=== PATIENT | female | born 1990 | race American Indian/Alaskan Native ===

== ENCOUNTER 2016-10-09 18:24 | Emergency (ER) | payer MEDICAID ==
[2016-10-09] MEDS ORDERED: Sodium Chloride 0.9% 1,000 ML IV STA (18:29)
[2016-10-09 18:33] VITALS: BMI 19.3
--- NOTE | 2016-10-09 18:35 | ED PDOC ---
Arrival/HPI - General Chief Complaint: Seizure Time Seen by Provider: 10/09/16 18:25 Historian: Patient - History of Present Illness Narrative History of Present Illness (Text): 10/09/16 18:31 A 25 year old female whose past medical history includes, seizures and not on antiepileptic medication, TBI, presents to the Emergency department after a seizure episode at her house. The patient states that she had an episode in May and had a CT- Scan done, but never followed up with a neurologist. The patient states that she feels weak. She denies headache, dizziness, cough, shortness of breath, chest pain, abdominal pain, nausea, vomiting, diarrhea, urinary incontinence, tongue biting, or any other complaints. 10/09/16 21:31 Time/Duration: Prior to Arrival Symptom Course: Unchanged Activities at Onset: Rest, Light Context: Home Past Medical History - Provider Review Nursing Documentation Reviewed: Yes - Cardiac Hx Cardiac Disorders: No - Pulmonary Hx Respiratory Disorders: No - Neurological Hx Neurological Disorder: Yes Hx Seizures: Yes - HEENT Hx HEENT Disorder: No - Renal Hx Renal Disorder: No - Endocrine/Metabolic Hx Endocrine Disorders: No - Hematological/Oncological Hx Blood Disorders: No - Integumentary Hx Dermatological Disorder: No - Musculoskeletal/Rheumatological Hx Musculoskeletal Disorders: No - Gastrointestinal Hx Gastrointestinal Disorders: No - Genitourinary/Gynecological Hx Genitourinary Disorders: No - Psychiatric Hx Psychophysiologic Disorder: No Hx Substance Use: No Family/Social History - Physician Review Nursing Documentation Reviewed: Yes Family/Social History: No Known Family HX Smoking Status: Heavy Smoker > 10 Cigarettes Daily Hx Alcohol Use: Yes Frequency of alcohol use: Socially Hx Substance Use: No Allergies/Home Meds Allergies/Adverse Reactions: Allergies No Known Allergies Allergy (Verified 10/09/16 18:26) Home Medications: Home Meds Medication Instructions Recorded Confirmed No Known Home Med 10/09/16 10/09/16 Review of Systems - Physician Review All systems were reviewed & negative as marked: Yes - Review of Systems Constitutional: absent: Fevers, Night Sweats Respiratory: absent: SOB, Cough Cardiovascular: absent: Chest Pain Gastrointestinal: absent: Abdominal Pain, Diarrhea, Nausea, Vomiting Genitourinary Female: absent: Other (Urinary Incontenence) Neurological: Seizure (Episode prior to arrival). absent: Headache, Dizziness Physical Exam Vital Signs Reviewed: Yes Vital Signs Temp Pulse Resp BP Pulse Ox 10/09/16 18:25 98.2 F 74 18 125/70 100 Temperature: Afebrile Blood Pressure: Normal Pulse: Regular Respiratory Rate: Normal Appearance: Positive for: Well-Appearing, Non-Toxic, Comfortable Pain Distress: None Mental Status: Positive for: Alert and Oriented X 3 - Systems Exam Head: Present: Atraumatic, Normocephalic Pupils: Present: PERRL Extroacular Muscles: Present: EOMI Conjunctiva: Present: Normal Mouth: Present: Moist Mucous Membranes Neck: Present: Normal Range of Motion Respiratory/Chest: Present: Clear to Auscultation, Good Air Exchange. No: Respiratory Distress, Accessory Muscle Use Cardiovascular: Present: Regular Rate and Rhythm, Normal S1, S2. No: Murmurs Abdomen: Present: Normal Bowel Sounds. No: Tenderness, Distention, Peritoneal Signs Back: Present: Normal Inspection Upper Extremity: Present: Normal Inspection. No: Cyanosis, Edema Lower Extremity: Present: Normal Inspection. No: Edema Neurological: Present: Other (Feels Mildly Weak) Skin: Present: Warm, Dry, Normal Color. No: Rashes Psychiatric: Present: Alert, Oriented x 3, Normal Insight, Normal Concentration Medical Decision Making ED Course and Treatment: 10/09/16 18:37 Impression: A 25 year old female brought in via EMS with a seizure episode prior to arrival. Plan: -- Urinalysis -- Labs -- IV Fluids -- Reassess and disposition Progress Notes: 10/09/16 21:04 pt now reports h/o of intracranial bleed, previously. ct added. 10/09/16 21:31 CT shows MPRESSION: Large area of hypoattenuation in the left frontal lobe, appears to represent chronic encephalomalacia and gliosis. Question prior history of infarct or trauma. There is mild ex vacuo dilatation of the left lateral ventricle. Alternatively, insult may be developmental. Schizencephaly is a consideration. Correlate clinically. Followup as warranted. h/o of tbi. suspected ct results related to previous trauma (may). pt neuro intact. advise outpt f/u with neuro. 10/09/16 22:16 pt remains neuro intact in er. ambulatory steady gait. no repeat seizure activity. stable for outpt mangement. - Lab Interpretations Lab Results: 10/09/16 18:30 10/09/16 18:30 Lab Results 10/09/16 19:40: Urine Opiates Screen Negative, Urine Methadone Screen Negative, Ur Barbiturates Screen Negative, Ur Phencyclidine Scrn Negative, Ur Amphetamines Screen Negative, U Benzodiazepines Scrn Negative, U Oth Cocaine Metabols Negative, U Cannabinoids Screen Negative 10/09/16 19:40: Urine Color Light yellow, Urine Appearance Clear, Urine pH 6.5, Ur Specific Lancing 1.025, Urine Protein 100 H, Urine Glucose (UA) Negative, Urine Ketones Trace H, Urine Blood Trace-intact H, Urine Nitrate Negative, Urine Bilirubin Negative, Urine Urobilinogen 0.2, Ur Leukocyte Esterase Negative , Urine RBC 0 - 2, Urine WBC 0 - 2, Ur Epithelial Cells 6 - 8, Other Crystals None, Urine Bacteria Mod, Urine HCG, Qual Negative 10/09/16 18:30: PT 11.1, INR 1.03, APTT 27.2 10/09/16 18:30: Alcohol, Quantitative < 10 10/09/16 18:30: Sodium 137, Potassium 3.6, Chloride 101, Carbon Dioxide 19 L, Anion Gap 21 H, BUN 6 L, Creatinine 0.7, Est GFR ( Amer) > 60, Est GFR ( Non-Af Amer) > 60, Random Glucose 112 H, Calcium 9.4, Total Bilirubin 0.7, AST 57 H, ALT 31, Alkaline Phosphatase 52, Total Protein 7.4, Albumin 4.5, Globulin 3.0, Albumin/Globulin Ratio 1.5 10/09/16 18:30: WBC 5.0, RBC 4.34, Hgb 13.2, Hct 38.5, MCV 88.7, MCH 30.4, MCHC 34.3, RDW 13.2, Plt Count 223, MPV 8.5, Gran % 39.6 L, Lymph % (Auto) 48.2 H, Leake % (Auto) 10.6 H, Eos % (Auto) 1.2 L, Baso % (Auto) 0.4, Gran # 1.98, Lymph # 2.4, Leake # 0.5, Eos # 0.1, Baso # 0.02 I have reviewed the lab results: Yes - RAD Interpretation Radiology Orders: 10/09/16 19:21 HEAD W/O CONTRAST [CT] Stat - Medication Orders Current Medication Orders: Discontinued Medications Acetaminophen (Tylenol 325mg Tab) 975 mg PO STAT STA Stop: 10/09/16 20:44 Last Admin: 10/09/16 20:48 Dose: 975 mg Acetaminophen (Tylenol 325mg Tab) Confirm Administered Dose 975 mg .ROUTE .STK- MED ONE Stop: 10/09/16 20:46 Last Admin: 10/09/16 20:50 Dose: Sodium Chloride (Sodium Chloride 0.9%) 1,000 mls @ 999 mls/hr IV .Q1H1M STA Stop: 10/09/16 19:29 Last Admin: 10/09/16 18:52 Dose: 999 mls/hr - Scribe Statement The provider has reviewed the documentation as recorded by the Scribe Estefanía Rivera Provider Scribe Attestation: All medical record entries made by the Scribe were at my direction and personally dictated by me. I have reviewed the chart and agree that the record accurately reflects my personal performance of the history, physical exam, medical decision making, and the department course for this patient. I have also personally directed, reviewed, and agree with the discharge instructions and disposition. Disposition/Present on Arrival - Present on Arrival Any Indicators Present on Arrival: No History of DVT/PE: No History of Uncontrolled Diabetes: No Urinary Catheter: No History of Decub. Ulcer: No History Surgical Site Infection Following: None - Disposition Have Diagnosis and Disposition been Completed?: Yes Diagnosis: Seizure Disposition: HOME/ ROUTINE Disposition Time: 21:32 Patient Problems: Current Active Problems Problem Status Onset Seizure Acute Condition: STABLE Discharge Instructions (ExitCare): Recurrent Seizures in Adults (ED) Additional Instructions: please follow up with your doctor/specialist. return to er with worsening symptoms or concerns. Referrals: PCP,NO [Primary Care Provider] - [place] [facility] [place] [facility] [place] - Follow up with primary [facility] [Outside] - Follow up with primary Estevan Harrington MD [Staff Provider] - Follow up with primary Israel Harrington MD [Staff Provider] - Follow up with primary Forms: [employer] (Italian)
[2016-10-09 18:43] VITALS: PULSE 74; RESP 18; TEMP 98.2
[2016-10-09 19:01] LABS: ALB/GLOB RATIO 1.5 (1.1-1.8); ALBUMIN 4.5 g/dL (3.0-4.8); ALT/SGPT 31 U/L (7-56); AST/SGOT 57 U/L (15-39); BLOOD UREA NITROGEN 6 mg/dL (7-21); CALCIUM 9.4 mg/dL (8.4-10.5); GFR AFRICAN-AMERICAN > 60; GFR NON-AFRICAN AMERICAN > 60
[2016-10-09 19:34] LABS: BASO # 0.02 K/mm3 (0.0-2.0); BASO % 0.4 % (0.0-3.0); EOS # 0.1 (0.0-0.7); EOS % 1.2 % (1.5-5.0); GRAN # 1.98 (1.4-6.5); GRAN % 39.6 % (50.0-68.0); HEMOGLOBIN 13.2 g/dL (12.0-16.0); LYMPH # 2.4 (1.2-3.4); LYMPH % 48.2 % (22.0-35.0); MEAN CELL VOLUME 88.7 fl (80.0-105.0); MEAN CORPUSCULAR HEMOGLOBIN 30.4 pg (25.0-35.0); MEAN CORPUSCULAR HGB CONC 34.3 g/dl (31.0-37.0); MEAN PLATELET VOLUME 8.5 fl (7.0-11.0); MONO # 0.5 (0.1-0.6); MONO % 10.6 % (1.0-6.0); PLATELET COUNT 223 10^3/uL (120.0-450.0); RBC 4.34 10^6/uL (3.5-6.1); RED CELL DISTRIBUTION WIDTH 13.2 % (11.5-14.5)
[2016-10-09 19:37] LABS: INR 1.03 (0.93-1.08); PARTIAL THROMBOPLASTIN TIME 27.2 Seconds (23.7-30.8); PROTHROMBIN TIME 11.1 Seconds (9.9-11.8)
[2016-10-09 19:47] LABS: PH,URINE 6.5 (4.7-8.0); URINE BILIRUBIN NEGATIVE (NEGATIVE); URINE BLOOD TRACE-INTACT (NEGATIVE); URINE GLUCOSE (UA) NEGATIVE (NEGATIVE); URINE LEUKOCYTE ESTERASE NEGATIVE Leu/uL (NEGATIVE); URINE NITRATE NEGATIVE (NEGATIVE); URINE PROTEIN 100 mg/dL (<30 mg/dL); URINE UROBILINOGEN 0.2 E.U./dL (<1 E.U./dL)
[2016-10-09 20:00] LABS: HCG,QUALITATIVE URINE NEGATIVE (NEGATIVE); URINE APPEARANCE CLEAR (CLEAR); URINE COLOR LIGHT YELLOW (YELLOW)
[2016-10-09 20:05] LABS: URINE BACTERIA MOD (NEG); URINE RBC 0 - 2 /hpf (0-2); URINE WBC 0 - 2 /hpf (0-6)
[2016-10-09 20:08] LABS: BARBITURATES, UR NEGATIVE (NEGATIVE); BENZODIAZEPINES, UR NEGATIVE (NEGATIVE); OPIATES, UR NEGATIVE (NEGATIVE); PHENCYCLIDINE, UR NEGATIVE (NEGATIVE)
--- NOTE | 2016-10-09 21:28 | CT ---
EXAM: CT Head Without Intravenous Contrast CLINICAL HISTORY: 25 years old, female; Signs and symptoms; Other: Siezure; Additional info: Seizure TECHNIQUE: Axial computed tomography images of the head/brain without intravenous contrast. All CT scans at this facility use one or more dose reduction techniques, viz.: automated exposure control; ma/kV adjustment per patient size (including targeted exams where dose is matched to indication; i.e. head); or iterative reconstruction technique. COMPARISON: No relevant prior studies available. FINDINGS: Brain: Large area of hypoattenuation in the left frontal lobe, appears to represent chronic encephalomalacia and gliosis. Question prior history of infarct or trauma. There is mild ex vacuo dilatation of the left lateral ventricle. Alternatively, insult may be developmental. Schizencephaly is a consideration. No hemorrhage. No edema. Ventricles: No hydrocephalus. Bones: Skull is intact. Sinuses: Fluid in the right posterior ethmoid air cells. Mastoid air cells: No mastoid effusion. IMPRESSION: Large area of hypoattenuation in the left frontal lobe, appears to represent chronic encephalomalacia and gliosis. Question prior history of infarct or trauma. There is mild ex vacuo dilatation of the left lateral ventricle. Alternatively, insult may be developmental. Schizencephaly is a consideration. Correlate clinically. Followup as warranted.
[2016-10-09 22:20] VITALS: BP 124/72; O2SAT 99
== END 2016-10-09 22:20 | disposition home or self-care (01) ==
LOC: ED 18:24
DX: R56.9 Unspecified convulsions (principal)
CPT/HCPCS: 70450; 80053; 80320; 80324; 80345; 80346; 80349; 80353; 80358; 80361; 81001; 83992; 84703; 85025; 85610; 85730; 96360; 99285; J7040

== ENCOUNTER 2016-10-16 02:36 | Emergency (ER) | payer MEDICAID ==
[2016-10-16 02:47] VITALS: RESP 18; TEMP 98.2; BMI 20.7
[2016-10-16] MEDS ORDERED: levETIRAcetam 500mg IVPB 500 MG/100 ML BAG IVPB STA (02:55)
--- NOTE | 2016-10-16 02:55 | ED PDOC ---
Arrival/HPI - General Chief Complaint: Weakness/Neurological Deficit Time Seen by Provider: 10/16/16 02:50 Historian: Patient, Parent - History of Present Illness Narrative History of Present Illness (Text): 10/16/16 02:55 Janeth Logan is a 25 year old female, whose past medical hstory includes traumatic brain injury and seizures, who presents to the Emergency department accompanied by relative complaining of headache and generalized weakness. Relative states patient woke up tonight feeling weak and tired with associated headache. Relative notes patient usually experienced these symptoms after having a seizure and may had a seizure while sleeping. Relative states patient is not on any anti-epileptic medications and has been unable to follow-up with a neurologist. Patient denies any fever, chills, chest pain, shortness of breath , nausea, vomiting, diarrhea, urinary symptoms, back pain, neck pain, dizziness , or any other complaints. Time/Duration: Other (tonight) Symptom Onset: Gradual Symptom Course: Unchanged Activities at Onset: Light, Sleeping Context: Home Past Medical History - Provider Review Nursing Documentation Reviewed: Yes - Cardiac Hx Cardiac Disorders: No - Pulmonary Hx Respiratory Disorders: No - Neurological Hx Neurological Disorder: Yes Hx Seizures: Yes Other/Comment: Patient states tramatic brain injury. - HEENT Hx HEENT Disorder: No - Renal Hx Renal Disorder: No - Endocrine/Metabolic Hx Endocrine Disorders: No - Hematological/Oncological Hx Blood Disorders: No - Integumentary Hx Dermatological Disorder: No - Musculoskeletal/Rheumatological Hx Musculoskeletal Disorders: No - Gastrointestinal Hx Gastrointestinal Disorders: No - Genitourinary/Gynecological Hx Genitourinary Disorders: No - Psychiatric Hx Psychophysiologic Disorder: No Hx Substance Use: No - Anesthesia Hx Anesthesia: Yes Family/Social History - Physician Review Nursing Documentation Reviewed: Yes Family/Social History: Unknown Family HX Smoking Status: Heavy Smoker > 10 Cigarettes Daily Hx Alcohol Use: Yes Hx Substance Use: No Allergies/Home Meds Allergies/Adverse Reactions: Allergies No Known Allergies Allergy (Verified 10/16/16 02:47) Review of Systems - Physician Review All systems were reviewed & negative as marked: Yes - Review of Systems Constitutional: Other (+generalized weakness, +tired). absent: Fevers Eyes: Normal ENT: Normal Respiratory: Normal. absent: SOB, Cough Cardiovascular: Normal. absent: Chest Pain Gastrointestinal: Normal. absent: Abdominal Pain, Diarrhea, Nausea, Vomiting Genitourinary Female: Normal. absent: Dysuria, Frequency, Hematuria, Urine Output Changes Musculoskeletal: Normal. absent: Back Pain, Neck Pain Skin: Normal Neurological: Headache Endocrine: Normal Hemo/Lymphatic: Normal Psychiatric: Normal Physical Exam Vital Signs Reviewed: Yes Vital Signs Temp Pulse Resp BP Pulse Ox 10/16/16 02:48 98.2 F 71 18 138/79 98 10/16/16 02:46 98.2 F 71 18 138/79 98 Temperature: Afebrile Blood Pressure: Normal Pulse: Regular Respiratory Rate: Normal Appearance: Positive for: Well-Appearing, Non-Toxic, Comfortable Pain Distress: None Mental Status: Positive for: Alert and Oriented X 3 - Systems Exam Head: Present: Atraumatic, Normocephalic Pupils: Present: PERRL Extroacular Muscles: Present: EOMI Conjunctiva: Present: Normal Mouth: Present: Moist Mucous Membranes Neck: Present: Normal Range of Motion Respiratory/Chest: Present: Clear to Auscultation, Good Air Exchange. No: Respiratory Distress, Accessory Muscle Use Cardiovascular: Present: Regular Rate and Rhythm, Normal S1, S2. No: Murmurs Abdomen: Present: Normal Bowel Sounds. No: Tenderness, Distention, Peritoneal Signs Back: Present: Normal Inspection Upper Extremity: Present: Normal Inspection. No: Cyanosis, Edema Lower Extremity: Present: Normal Inspection. No: Edema Neurological: Present: GCS=15, CN II-XII Intact, Speech Normal Skin: Present: Warm, Dry, Normal Color. No: Rashes Psychiatric: Present: Alert, Oriented x 3, Normal Insight, Normal Concentration Medical Decision Making ED Course and Treatment: 10/16/16 02:55 Impression: 25 year old female presents with headache, generalized weakness, and fatigue. Differential Diagnosis included but are not limited to: seizure Plan: -- Keppra -- Reassess and disposition Progress Notes: 10/16/16 04:10 On reevaluation the patient feels better and is in no acute distress. I have discussed the results and plan with the patient, who expresses understanding. Patient given the opportunity to ask question, all questions were answered and there is agreement with the plan to discharge the patient home with prescription for Keppra. Patient is stable for discharge. Patient was instructed to follow up with physician/neurologist/clinic in 1-2 days or return if symptoms persist/worsen or new concerning symptoms arise. Re-evaluation Time: 04:10 Reassessment Condition: Re-examined, Improved - Medication Orders Current Medication Orders: Discontinued Medications Acetaminophen (Tylenol 325mg Tab) 650 mg PO STAT STA Stop: 10/16/16 03:15 Last Admin: 10/16/16 03:16 Dose: 650 mg Acetaminophen (Tylenol 325mg Tab) Confirm Administered Dose 650 mg .ROUTE .STK- MED ONE Stop: 10/16/16 03:17 Last Admin: 10/16/16 03:23 Dose: Levetiracetam (Keppra 500mg Ivpb) 500 mg in 100 mls @ 400 mls/hr IVPB STAT STA Stop: 10/16/16 03:09 Last Admin: 10/16/16 03:06 Dose: 400 mls/hr - Scribe Statement The provider has reviewed the documentation as recorded by the Tiagoiblaith Levy Provider Scribe Attestation: All medical record entries made by the Scribe were at my direction and personally dictated by me. I have reviewed the chart and agree that the record accurately reflects my personal performance of the history, physical exam, medical decision making, and the department course for this patient. I have also personally directed, reviewed, and agree with the discharge instructions and disposition. Disposition/Present on Arrival - Present on Arrival Any Indicators Present on Arrival: No History of DVT/PE: No History of Uncontrolled Diabetes: No Urinary Catheter: No History of Decub. Ulcer: No History Surgical Site Infection Following: None - Disposition Have Diagnosis and Disposition been Completed?: Yes Diagnosis: Seizure Disposition: HOME/ ROUTINE Disposition Time: 04:11 Patient Problems: Current Active Problems Problem Status Onset Seizure Acute Condition: GOOD Discharge Instructions (ExitCare): Recurrent Seizures in Adults (ED) Prescriptions: Levetiracetam [Keppra] 500 mg PO BID #24 tablet Forms: [employer] (Kazakh)
[2016-10-16 04:32] VITALS: BP 132/76; PULSE 72; O2SAT 100
== END 2016-10-16 04:38 | disposition home or self-care (01) ==
LOC: ED 02:36
DX: R56.9 Unspecified convulsions (principal); F17.210 Nicotine dependence, cigarettes, uncomplicated
CPT/HCPCS: 96374; 99284; J1953

== ENCOUNTER 2017-01-18 04:17 | Emergency (ER) | payer MEDICAID ==
[2017-01-18 04:25] VITALS: RESP 18; TEMP 98.1; O2SAT 100
--- NOTE | 2017-01-18 04:34 | ED PDOC ---
Arrival/HPI - General Chief Complaint: Seizure Time Seen by Provider: 01/18/17 04:19 Historian: Patient - History of Present Illness Narrative History of Present Illness (Text): 01/18/17 04:33 A 26 year old female, whose past medical history includes seizures and traumatic brain injury, presents to the emergency department after witnessed seizure. Patient reports she had a seizure in her sleep. Patient missed a couple of doses of Keppra medications. Patient denies any headache, nausea, vomiting or any other complaints at this time. Medications: Keppra Symptom Onset: Sudden Symptom Course: Improving Activities at Onset: Rest Context: Home Past Medical History - Provider Review Nursing Documentation Reviewed: Yes - Infectious Disease Hx of Infectious Diseases: None - Cardiac Hx Cardiac Disorders: No - Pulmonary Hx Respiratory Disorders: No - Neurological Hx Neurological Disorder: Yes Hx Seizures: Yes Other/Comment: Patient states tramatic brain injury. - HEENT Hx HEENT Disorder: No - Renal Hx Renal Disorder: No - Endocrine/Metabolic Hx Endocrine Disorders: No - Hematological/Oncological Hx Blood Disorders: No - Integumentary Hx Dermatological Disorder: No - Musculoskeletal/Rheumatological Hx Musculoskeletal Disorders: No - Gastrointestinal Hx Gastrointestinal Disorders: No - Genitourinary/Gynecological Hx Genitourinary Disorders: No - Psychiatric Hx Psychophysiologic Disorder: No Hx Substance Use: No - Anesthesia Hx Anesthesia: Yes Family/Social History - Physician Review Nursing Documentation Reviewed: Yes Family/Social History: No Known Family HX Smoking Status: Heavy Smoker > 10 Cigarettes Daily Hx Alcohol Use: Yes Hx Substance Use: No Allergies/Home Meds Allergies/Adverse Reactions: Allergies No Known Allergies Allergy (Verified 01/18/17 04:25) Review of Systems - Physician Review All systems were reviewed & negative as marked: Yes - Review of Systems Gastrointestinal: absent: Nausea, Vomiting Neurological: Seizure. absent: Headache Physical Exam Vital Signs Reviewed: Yes Vital Signs Temp Pulse Resp BP Pulse Ox 01/18/17 04:24 98.1 F 82 18 133/73 100 Temperature: Afebrile Blood Pressure: Normal Pulse: Regular Respiratory Rate: Normal Appearance: Positive for: Well-Appearing, Non-Toxic, Comfortable Pain Distress: None Mental Status: Positive for: Alert and Oriented X 3 - Systems Exam Head: Present: Atraumatic, Normocephalic Pupils: Present: PERRL Extroacular Muscles: Present: EOMI Conjunctiva: Present: Normal Mouth: Present: Moist Mucous Membranes Neck: Present: Normal Range of Motion Respiratory/Chest: Present: Clear to Auscultation, Good Air Exchange. No: Respiratory Distress, Accessory Muscle Use Cardiovascular: Present: Regular Rate and Rhythm, Normal S1, S2. No: Murmurs Abdomen: Present: Normal Bowel Sounds. No: Tenderness, Distention, Peritoneal Signs Back: Present: Normal Inspection Upper Extremity: Present: Normal Inspection. No: Cyanosis, Edema Lower Extremity: Present: Normal Inspection. No: Edema Neurological: Present: GCS=15, CN II-XII Intact, Speech Normal Skin: Present: Warm, Dry, Normal Color. No: Rashes Psychiatric: Present: Alert, Oriented x 3, Normal Insight, Normal Concentration Medical Decision Making ED Course and Treatment: 01/18/17 04:32 Impression: A 26 year old female with seizure. Plan: -- Keppra, Tylenol -- Reassess and disposition Prior Visits: Notes and results from previous visits were reviewed. Patient was last seen in the emergency department on 10/16/16 for evaluation of headache and generalized weakness. Progress Notes: Re-evaluation Time: 06:48 Reassessment Condition: Re-examined, Improved - Medication Orders Current Medication Orders: Discontinued Medications Acetaminophen (Tylenol 325mg Tab) 650 mg PO STAT STA Stop: 01/18/17 04:30 Last Admin: 01/18/17 04:46 Dose: 650 mg MAR Pain/Vitals Document 01/18/17 04:46 NV (Rec: 01/18/17 04:46 NV [id number]) Pain Reassessment Is This A Pain ReAssessment? No Sleep Is patient sleeping during reassessment? No Presence of Pain Presence of Pain Yes Pain Scale Used Pain Scale Used Numeric Location Pain Location Body Sales Performance Analyst Description Constant Intensity 5 Levetiracetam (Keppra) 500 mg PO STAT STA Stop: 01/18/17 04:30 Last Admin: 01/18/17 04:46 Dose: 500 mg - Scribe Statement The provider has reviewed the documentation as recorded by the Thong Levy Provider Scribe Attestation: All medical record entries made by the Scribe were at my direction and personally dictated by me. I have reviewed the chart and agree that the record accurately reflects my personal performance of the history, physical exam, medical decision making, and the department course for this patient. I have also personally directed, reviewed, and agree with the discharge instructions and disposition. Disposition/Present on Arrival - Present on Arrival Any Indicators Present on Arrival: No History of DVT/PE: No History of Uncontrolled Diabetes: No Urinary Catheter: No History of Decub. Ulcer: No History Surgical Site Infection Following: None - Disposition Have Diagnosis and Disposition been Completed?: Yes Diagnosis: Seizure disorder Disposition: HOME/ ROUTINE Disposition Time: 06:48 Condition: GOOD Discharge Instructions (ExitCare): Recurrent Seizures in Adults (ED) Additional Instructions: take your medication as directed Forms: [employer] (Spanish)
[2017-01-18 07:04] VITALS: BP 102/56; PULSE 69
== END 2017-01-18 07:09 | disposition home or self-care (01) ==
LOC: ED 04:17
DX: G40.909 Epilepsy, unspecified, not intractable, without status epilepticus (principal)

== ENCOUNTER 2017-02-26 16:23 | Emergency (ER) | payer MEDICAID ==
--- NOTE | 2017-02-26 16:49 | ED PDOC ---
Arrival/HPI - General Chief Complaint: Seizure Time Seen by Provider: 02/26/17 16:29 Historian: Parent (mother) - History of Present Illness Narrative History of Present Illness (Text): 02/26/17 16:40 A 26 year old female, whose past medical history includes seizures and traumatic brain injury, is brought in by mother and presents to the emergency department complaining of witnessed seizure. Patient experienced 2 seizures today. Per mother, patient began vomiting after seizure. Patient also began experiencing abdominal pain. Denies of any injury. Patient is nonverbal and moaning at baseline. No PMD Past Medical History - Provider Review Nursing Documentation Reviewed: Yes - Infectious Disease Hx of Infectious Diseases: None - Cardiac Hx Cardiac Disorders: No - Pulmonary Hx Respiratory Disorders: No - Neurological Hx Neurological Disorder: Yes Hx Seizures: Yes Other/Comment: Patient states tramatic brain injury. - HEENT Hx HEENT Disorder: No - Renal Hx Renal Disorder: No - Endocrine/Metabolic Hx Endocrine Disorders: No - Hematological/Oncological Hx Blood Disorders: No - Integumentary Hx Dermatological Disorder: No - Musculoskeletal/Rheumatological Hx Musculoskeletal Disorders: No - Gastrointestinal Hx Gastrointestinal Disorders: No - Genitourinary/Gynecological Hx Genitourinary Disorders: No - Psychiatric Hx Psychophysiologic Disorder: No Hx Substance Use: No - Anesthesia Hx Anesthesia: Yes Hx Anesthesia Reactions: No Family/Social History - Physician Review Nursing Documentation Reviewed: Yes Family/Social History: No Known Family HX Smoking Status: Heavy Smoker > 10 Cigarettes Daily Hx Alcohol Use: Yes Hx Substance Use: No Allergies/Home Meds Allergies/Adverse Reactions: Allergies No Known Allergies Allergy (Verified 02/26/17 16:39) Home Medications: Home Meds Medication Instructions Recorded Confirmed OXcarbazepine [Trileptal] 600 mg PO BID 02/26/17 02/26/17 Review of Systems - Physician Review All systems were reviewed & negative as marked: Yes - Review of Systems Constitutional: absent: Other (no trauama/injuries) Gastrointestinal: Abdominal Pain, Vomiting (occurred after seizure episodes) Neurological: Seizure Physical Exam Vital Signs Temp Pulse Resp BP Pulse Ox 02/26/17 18:23 80 18 134/67 100 02/26/17 16:46 98.7 F 82 18 136/68 100 Appearance: Positive for: Other (nonverbal and moaning at baseline) - Systems Exam Neurological: Present: Other (nonfocal) Medical Decision Making ED Course and Treatment: 02/26/17 16:45 Impression: 26 year old female with witnessed seizure x 2. Plan: -- Labs -- Reassess and disposition Prior Visits: Notes and results from previous visits were reviewed. Patient was last seen in the emergency department on 01/18/2017 for witnessed seizure. Patient was d/c home. Progress Notes: - Lab Interpretations Lab Results: 02/26/17 16:35 02/26/17 19:10 Lab Results 02/26/17 19:10: Sodium 140, Potassium 4.1, Chloride 107, Carbon Dioxide 25, Anion Gap 12, BUN 7, Creatinine 0.5 L, Est GFR ( Amer) > 60, Est GFR (Non -Af Amer) > 60, Random Glucose 91, Calcium 9.4, Total Bilirubin 0.5, AST 53 H, ALT 33, Alkaline Phosphatase 76, Total Protein 7.7, Albumin 4.4, Globulin 3.3, Albumin/Globulin Ratio 1.3 02/26/17 16:35: WBC 7.5 D, RBC 4.15, Hgb 12.6, Hct 37.8, MCV 91.1, MCH 30.4, MCHC 33.3, RDW 14.4, Plt Count 275, MPV 8.7, Gran % 73.5 H, Lymph % (Auto) 16.8 L, [place] % (Auto) 9.2 H, Eos % (Auto) 0.1 L, Baso % (Auto) 0.4, Gran # 5.50, Lymph # 1.3, [place] # 0.7 H, Eos # 0.0, Baso # 0.03 - Medication Orders Current Medication Orders: Discontinued Medications Acetaminophen (Tylenol 325mg Tab) 650 mg PO STAT STA Stop: 02/26/17 18:33 Last Admin: 02/26/17 19:01 Dose: 650 mg MAR Pain/Vitals Document 02/26/17 19:01 JOL (Rec: 02/26/17 19:02 JOL [id number]) Pain Reassessment Is This A Pain ReAssessment? No Sleep Is patient sleeping during reassessment? 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 I have reviewed the chart and agree that the record accurately reflects my personal performance of the history, physical exam, medical decision making, and the department course for this patient. I have also personally directed, reviewed, and agree with the discharge instructions and disposition. Disposition/Present on Arrival - Present on Arrival Any Indicators Present on Arrival: No History of DVT/PE: No History of Uncontrolled Diabetes: No Urinary Catheter: No History of Decub. Ulcer: No History Surgical Site Infection Following: None - Disposition Have Diagnosis and Disposition been Completed?: Yes Diagnosis: Seizure disorder, Abdominal pain Disposition: HOME/ ROUTINE Disposition Time: 21:00 Patient Plan: Discharge Patient Problems: Current Active Problems Problem Status Onset Abdominal pain Acute Seizure disorder Acute Condition: IMPROVED Additional Instructions: Labs unremarkable and patient denies abdominal pain at discharge. Taking po fluids and meds without difficulty. Continue current medications. Forms: [employer] (Portuguese)
[2017-02-26 16:53] VITALS: TEMP 98.7
[2017-02-26 17:16] LABS: BASO # 0.03 K/mm3 (0.0-2.0); BASO % 0.4 % (0.0-3.0); EOS % 0.1 % (1.5-5.0); GRAN # 5.5 (1.4-6.5); GRAN % 73.5 % (50.0-68.0); HEMOGLOBIN 12.6 g/dL (12.0-16.0); LYMPH # 1.3 (1.2-3.4); LYMPH % 16.8 % (22.0-35.0); MEAN CELL VOLUME 91.1 fl (80.0-105.0); MEAN CORPUSCULAR HEMOGLOBIN 30.4 pg (25.0-35.0); MEAN CORPUSCULAR HGB CONC 33.3 g/dl (31.0-37.0); MEAN PLATELET VOLUME 8.7 fl (7.0-11.0); MONO # 0.7 (0.1-0.6); MONO % 9.2 % (1.0-6.0); RBC 4.15 10^6/uL (3.5-6.1); RED CELL DISTRIBUTION WIDTH 14.4 % (11.5-14.5); WHITE BLOOD COUNT 7.5 10^3/ul (4.5-11.0)
[2017-02-26 19:31] LABS: ALB/GLOB RATIO 1.3 (1.1-1.8); ALBUMIN 4.4 g/dL (3.0-4.8); ALT/SGPT 33 U/L (7-56); AST/SGOT 53 U/L (14-36); BLOOD UREA NITROGEN 7 mg/dL (7-21); CALCIUM 9.4 mg/dL (8.4-10.5); GFR AFRICAN-AMERICAN > 60; GFR NON-AFRICAN AMERICAN > 60
[2017-02-26 20:02] VITALS: BP 100/57; PULSE 83; RESP 16; O2SAT 97
[2017-03-01 05:48] LABS: LEVETIRACETAM <1.0 mcg/mL
== END 2017-02-26 21:11 | disposition home or self-care (01) ==
LOC: ED 16:23
DX: G40.909 Epilepsy, unspecified, not intractable, without status epilepticus (principal); R10.9 Unspecified abdominal pain

== ENCOUNTER 2017-07-07 15:46 | Emergency (ER) | payer MEDICAID ==
[2017-07-07 15:53] VITALS: BMI 21.5
[2017-07-07] MEDS ORDERED: Sodium Chloride 0.9% 1,000 ML IV STA (15:54)
--- NOTE | 2017-07-07 15:57 | ED PDOC ---
Arrival/HPI - General Time Seen by Provider: 07/07/17 15:52 Historian: Patient - History of Present Illness Narrative History of Present Illness (Text): 07/07/17 15:54 26yo female with PMhx of Seizure bib EMS for seizure and traumatic brain injury (May 2016). Patient states she had a witnessed seizure while she was at work. States she saw the EMS when she became conscious. She report headache. She denies urinary incontinence, tongue biting, chest pain, nausea, vomiting, focal weakness, any other complaint. Past Medical History - Provider Review Nursing Documentation Reviewed: Yes - Infectious Disease Hx of Infectious Diseases: None - Cardiac Hx Cardiac Disorders: No - Pulmonary Hx Respiratory Disorders: No - Neurological Hx Neurological Disorder: Yes Hx Seizures: Yes Other/Comment: Patient states tramatic brain injury. - HEENT Hx HEENT Disorder: No - Renal Hx Renal Disorder: No - Endocrine/Metabolic Hx Endocrine Disorders: No - Hematological/Oncological Hx Blood Disorders: No - Integumentary Hx Dermatological Disorder: No - Musculoskeletal/Rheumatological Hx Musculoskeletal Disorders: No - Gastrointestinal Hx Gastrointestinal Disorders: No - Genitourinary/Gynecological Hx Genitourinary Disorders: No - Psychiatric Hx Psychophysiologic Disorder: No Hx Substance Use: No - Anesthesia Hx Anesthesia: Yes Hx Anesthesia Reactions: No Family/Social History - Physician Review Nursing Documentation Reviewed: Yes Family/Social History: Unknown Family HX Smoking Status: Heavy Smoker > 10 Cigarettes Daily Hx Alcohol Use: Yes Hx Substance Use: No Allergies/Home Meds Allergies/Adverse Reactions: Allergies No Known Allergies Allergy (Verified 02/26/17 16:39) Home Medications: Home Meds Medication Instructions Recorded Confirmed OXcarbazepine [Trileptal] 600 mg PO BID 02/26/17 07/07/17 Review of Systems - Physician Review All systems were reviewed & negative as marked: Yes - Review of Systems Constitutional: Normal Eyes: Normal ENT: Normal Respiratory: Normal Cardiovascular: Normal Gastrointestinal: Normal Genitourinary Female: Normal Musculoskeletal: Normal Skin: Normal Neurological: Headache, Seizure Endocrine: Normal Hemo/Lymphatic: Normal Psychiatric: Normal Physical Exam Vital Signs Reviewed: Yes Vital Signs Temp Pulse Resp BP Pulse Ox 07/07/17 15:46 98.7 F 104 H 18 106/53 L 97 Temperature: Afebrile Blood Pressure: Normal Pulse: Regular Respiratory Rate: Normal Appearance: Positive for: Well-Appearing, Non-Toxic, Comfortable Pain Distress: None Mental Status: Positive for: Alert and Oriented X 3 - Systems Exam Head: Present: Atraumatic, Normocephalic Pupils: Present: PERRL Extroacular Muscles: Present: EOMI Conjunctiva: Present: Normal Mouth: Present: Moist Mucous Membranes Neck: Present: Normal Range of Motion Respiratory/Chest: Present: Clear to Auscultation, Good Air Exchange. No: Respiratory Distress, Accessory Muscle Use Cardiovascular: Present: Regular Rate and Rhythm, Normal S1, S2. No: Murmurs Abdomen: No: Tenderness, Distention, Peritoneal Signs Back: Present: Normal Inspection Upper Extremity: Present: Normal Inspection. No: Cyanosis, Edema Lower Extremity: Present: Normal Inspection. No: Edema Neurological: Present: GCS=15, CN II-XII Intact, Speech Normal, Motor Func Grossly Intact, Normal Sensory Function, Normal Cerebellar Funct, Norm Deep Tendon Reflexes, Memory Normal, Normal 2Pt Descrimination, Other (No focal neurological deficit) Skin: Present: Warm, Dry, Normal Color. No: Rashes Psychiatric: Present: Alert, Oriented x 3, Normal Insight, Normal Concentration Medical Decision Making ED Course and Treatment: 07/07/17 16:00 26yo female bib EMS for seizure. PT has been seen here in ED multiple times for same complaint. Her last visit was February 26, 2017 s/p having seizure. She have no focal neurological deficit. Labs ordered 1L NS ordered Trileptal level ordered Will re asses. 07/07/17 18:43 On re evaluation pt notes resolution of her headache. She remain neurological intact. Lab is unremarkable. she states she didn't take her medication for few days, because it was making her drowsy. States she took it twice today. Trileptal level is pending. she was strongly advised to take her medication to maintain optimal therapeutic level in her body, to avoid seizure. Also was advised to f/u with her Neurologist. she expressed understanding of the instructions. - Lab Interpretations Lab Results: 07/07/17 16:00 07/07/17 16:00 Lab Results 07/07/17 18:32: Urine Color Yellow, Urine Appearance Clear, Urine pH 6.0, Ur Specific [place] 1.025, Urine Protein 30 H, Urine Glucose (UA) Negative, Urine Ketones Negative, Urine Blood Negative, Urine Nitrate Negative, Urine Bilirubin Negative, Urine Urobilinogen 0.2, Ur Leukocyte Esterase Negative, Urine RBC 0 - 2, Urine WBC 0 - 2, Ur Epithelial Cells 0 - 2, Urine Bacteria Few 07/07/17 16:03: POC Glucose (mg/dL) 84 07/07/17 16:00: Alcohol, Quantitative < 10 07/07/17 16:00: Sodium 139, Potassium 4.6, Chloride 103, Carbon Dioxide 20 L, Anion Gap 21 H, BUN 15, Creatinine 0.7, Est GFR ( Amer) > 60, Est GFR ( Non-Af Amer) > 60, Random Glucose 88, Calcium 9.1, Magnesium 2.0, Total Bilirubin 0.3, AST 29, ALT 21, Alkaline Phosphatase 44, Total Creatine Kinase 156, Total Protein 8.2, Albumin 4.8, Globulin 3.3, Albumin/Globulin Ratio 1.4 07/07/17 16:00: WBC 5.9 D, RBC 4.17, Hgb 12.6, Hct 37.3, MCV 89.4, MCH 30.2, MCHC 33.8, RDW 13.8, Plt Count 256, MPV 8.4, Gran % 42.7 L, Lymph % (Auto) 41.8 H, [place] % (Auto) 12.6 H, Eos % (Auto) 2.4, Baso % (Auto) 0.5, Gran # 2.50, Lymph # (Auto) 2.5, [place] # (Auto) 0.7 H, Eos # (Auto) 0.1, Baso # (Auto) 0.03 - Medication Orders Current Medication Orders: Discontinued Medications Acetaminophen (Tylenol 325mg Tab) 650 mg PO STAT STA Stop: 07/07/17 16:24 Last Admin: 07/07/17 16:30 Dose: 650 mg MAR Pain/Vitals Document 07/07/17 16:30 SRE (Rec: 07/07/17 16:31 SRE [id number]) Pain Reassessment Is This A Pain ReAssessment? No Sleep Is patient sleeping during reassessment? No Presence of Pain Presence of Pain Yes Pain Scale Used Pain Scale Used Numeric Location Pain Location Body Rheologist Description Intermittent Intensity 4 Scale Used Numeric Sodium Chloride (Sodium Chloride 0.9%) 1,000 mls @ 999 mls/hr IV .Q1H1M STA Stop: 07/07/17 16:54 Last Admin: 07/07/17 16:01 Dose: 999 mls/hr eMAR Start Stop Document 07/07/17 16:01 SRE (Rec: 07/07/17 16:02 SRE [id number]) Intravenous Solution Start Date 07/07/17 Start Time 16:02 End Date 07/07/17 End time 17:00 Total Infusion Time 58 Loratadine (Claritin) 10 mg PO ONCE ONE Stop: 07/07/17 16:25 Last Admin: 07/07/17 16:31 Dose: 10 mg Disposition/Present on Arrival - Present on Arrival Any Indicators Present on Arrival: No History of DVT/PE: No History of Uncontrolled Diabetes: No Urinary Catheter: No History Surgical Site Infection Following: None - Disposition Have Diagnosis and Disposition been Completed?: Yes Diagnosis: Seizure Disposition: HOME/ ROUTINE Disposition Time: 18:50 Patient Plan: Discharge Patient Problems: Current Active Problems Problem Status Onset Seizure Acute Condition: STABLE Discharge Instructions (ExitCare): Seizures, Adult (DC) Additional Instructions: Follow up with your doctor/Neurologist continue with your medication as directed Return to ED for any new or worsening symptoms Prescriptions: Loratadine/Pseudoephedrine [Claritin-D 24 Hour Tablet] 1 each PO DAILY #30 tab.er.24h Sodium Chloride [Saline Nose [place]] 45 ml NS DAILY #1 spray Referrals: Luda Huerta, [Primary Care Provider] - Follow up with primary Leo Redd MD [Staff Provider] - Follow up with primary
[2017-07-07 16:24] LABS: ALB/GLOB RATIO 1.4 (1.1-1.8); ALBUMIN 4.8 g/dL (3.0-4.8); CALCIUM 9.1 mg/dL (8.4-10.5); GFR AFRICAN-AMERICAN > 60; GFR NON-AFRICAN AMERICAN > 60
[2017-07-07 16:26] LABS: BASO # 0.03 K/mm3 (0.0-2.0); BASO % 0.5 % (0.0-3.0); EOS # 0.1 (0.0-0.7); EOS % 2.4 % (1.5-5.0); GRAN # 2.5 (1.4-6.5); GRAN % 42.7 % (50.0-68.0); HEMOGLOBIN 12.6 g/dL (12.0-16.0); LYMPH # 2.5 (1.2-3.4); LYMPH % 41.8 % (22.0-35.0); MEAN CELL VOLUME 89.4 fl (80.0-105.0); MEAN CORPUSCULAR HEMOGLOBIN 30.2 pg (25.0-35.0); MEAN CORPUSCULAR HGB CONC 33.8 g/dl (31.0-37.0); MEAN PLATELET VOLUME 8.4 fl (7.0-11.0); MONO # 0.7 (0.1-0.6); MONO % 12.6 % (1.0-6.0); RBC 4.17 10^6/uL (3.5-6.1); RED CELL DISTRIBUTION WIDTH 13.8 % (11.5-14.5); WHITE BLOOD COUNT 5.9 10^3/ul (4.5-11.0)
[2017-07-07 16:33] LABS: ALT/SGPT 21 U/L (7-56); AST/SGOT 29 U/L (14-36); BLOOD UREA NITROGEN 15 mg/dL (7-21)
[2017-07-07 18:38] LABS: URINE APPEARANCE CLEAR (CLEAR); URINE BILIRUBIN NEGATIVE (NEGATIVE); URINE BLOOD NEGATIVE (NEGATIVE); URINE COLOR YELLOW (YELLOW); URINE GLUCOSE (UA) NEGATIVE (NEGATIVE); URINE LEUKOCYTE ESTERASE NEGATIVE Leu/uL (NEGATIVE); URINE PROTEIN 30 mg/dL (<30 mg/dL); URINE UROBILINOGEN 0.2 E.U./dL (<1 E.U./dL)
[2017-07-07 18:47] LABS: URINE BACTERIA FEW (NEG); URINE EPITHELIAL CELLS 0 - 2 /hpf (0-5); URINE RBC 0 - 2 /hpf (0-2); URINE WBC 0 - 2 /hpf (0-6)
[2017-07-07 19:08] LABS: BARBITURATES, UR NEGATIVE (NEGATIVE); BENZODIAZEPINES, UR NEGATIVE (NEGATIVE); OPIATES, UR NEGATIVE (NEGATIVE); PHENCYCLIDINE, UR NEGATIVE (NEGATIVE)
[2017-07-07 19:15] VITALS: BP 110/58; PULSE 85; RESP 16; TEMP 98.3; O2SAT 99
--- NOTE | 2017-07-08 09:43 | CARD ---
APPROVED REPORT EKG Measurement Heart [id number] <Conclusion> Normal sinus rhythm RVCD NSSTW changes
== END 2017-07-07 19:00 | disposition home or self-care (01) ==
LOC: ED 15:46
DX: R56.9 Unspecified convulsions (principal); F17.210 Nicotine dependence, cigarettes, uncomplicated
CPT/HCPCS: 80053; 80320; 80324; 80345; 80346; 80349; 80353; 80358; 80361; 81001; 82550; 82948; 83735; 83789; 83992; 85025; 93005; 96360; 99285; J7040

== ENCOUNTER 2017-07-21 11:41 | Emergency (ER) | payer MEDICAID ==
[2017-07-21 11:42] VITALS: BMI 21.5
[2017-07-21 11:54] VITALS: TEMP 98.3
[2017-07-21] MEDS: Sodium Chloride 0.9% 1,000 ML IV STA ×2 (12:25→12:38)
[2017-07-21 12:46] LABS: PH,URINE 7.5 (4.7-8.0); URINE BILIRUBIN NEGATIVE (NEGATIVE); URINE BLOOD LARGE (NEGATIVE); URINE GLUCOSE (UA) NEGATIVE (NEGATIVE); URINE LEUKOCYTE ESTERASE TRACE Leu/uL (NEGATIVE); URINE PROTEIN 100 mg/dL (<30 mg/dL)
--- NOTE | 2017-07-21 12:46 | ED PDOC ---
Arrival/HPI - General Chief Complaint: Dizziness/Lightheaded Time Seen by Provider: 07/21/17 12:00 Historian: Patient - History of Present Illness Narrative History of Present Illness (Text): 07/21/17 12:36 26 year old female, whose past medical history includes a seizure disorder on oxcarbazepine, who presents to the emergency department complaining of lightheadedness/ blurry vision today. 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 Patient notes these symptoms as similar to her pre-seizure symptoms. Patient notes she has recently incremented from 300mg of oxcarbazepine to 600mg. Patient states she last took oxcarbazepine this morning. Patient again took oxcarbazepine in the emergency department. Patient denies any fever, chills , chest pain, shortness of breath, nausea, vomiting, back pain, neck pain, headache, dizziness, ETOH or drug abuse, or any other complaints. 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 - HEENT Hx HEENT Disorder: No - Renal Hx Renal Disorder: No - Endocrine/Metabolic Hx Endocrine Disorders: No - Hematological/Oncological Hx Blood Disorders: No - Integumentary Hx Dermatological Disorder: No - Musculoskeletal/Rheumatological Hx Musculoskeletal Disorders: No - Gastrointestinal Hx Gastrointestinal Disorders: No - Genitourinary/Gynecological Hx Genitourinary Disorders: No - Psychiatric Hx Psychophysiologic Disorder: No Hx Substance Use: No - Anesthesia Hx Anesthesia: Yes Hx Anesthesia Reactions: No Family/Social History - Physician Review Nursing Documentation Reviewed: Yes Family/Social History: Unknown Family HX Smoking Status: Heavy Smoker > 10 Cigarettes Daily Hx Alcohol Use: Yes Frequency of alcohol use: Socially Hx Substance Use: No Allergies/Home Meds Allergies/Adverse Reactions: Allergies No Known Allergies Allergy (Verified 02/26/17 16:39) Home Medications: Home Meds Medication Instructions Recorded Confirmed OXcarbazepine [Trileptal] 600 mg PO BID 02/26/17 07/21/17 Review of Systems - Physician Review All systems were reviewed & negative as marked: Yes - Review of Systems Constitutional: Normal Eyes: Normal ENT: Normal Respiratory: Normal. absent: SOB, Cough Cardiovascular: Normal. absent: Chest Pain Gastrointestinal: Diarrhea (3-5 episodes of watery, non-mucoid, non-bloody diarrhea x2days). absent: Abdominal Pain Genitourinary Female: Normal. absent: Dysuria, Frequency, Hematuria, Urine Output Changes Musculoskeletal: Normal. absent: Back Pain, Neck Pain Skin: Normal. absent: Rash Neurological: Normal. absent: Headache, Dizziness Endocrine: Normal Hemo/Lymphatic: Normal Psychiatric: Normal Physical Exam Vital Signs Reviewed: Yes Vital Signs Temp Pulse Resp BP Pulse Ox 07/21/17 14:26 68 18 118/64 98 07/21/17 12:20 98.3 F 70 18 123/69 98 07/21/17 11:46 98.3 F 70 17 123/69 98 Temperature: Afebrile Blood Pressure: Normal Pulse: Regular Respiratory Rate: Normal Appearance: Positive for: Well-Appearing, Non-Toxic, Comfortable Pain Distress: None Mental Status: Positive for: Alert and Oriented X 3 Finger Stick Blood Glucose: 88 - Systems Exam Head: Present: Atraumatic, Normocephalic Pupils: Present: PERRL Extroacular Muscles: Present: EOMI Conjunctiva: Present: Normal Mouth: Present: Moist Mucous Membranes Neck: Present: Normal Range of Motion. No: Meningeal Signs, MIDLINE TENDERNESS , JVD Respiratory/Chest: Present: Clear to Auscultation, Good Air Exchange. No: Respiratory Distress, Accessory Muscle Use Cardiovascular: Present: Regular Rate and Rhythm, Normal S1, S2. No: Murmurs Abdomen: No: Tenderness, Distention, Peritoneal Signs Back: Present: Normal Inspection. No: CVA Tenderness, Midline Tenderness Upper Extremity: Present: Normal Inspection. No: Cyanosis, Edema Lower Extremity: Present: Normal Inspection. No: Edema Neurological: Present: GCS=15, CN II-XII Intact, Speech Normal Skin: Present: Warm, Dry, Normal Color. No: Rashes Psychiatric: Present: Alert, Oriented x 3, Normal Insight, Normal Concentration Medical Decision Making ED Course and Treatment: 07/21/17 12:50 Impression: 26 year old female presents to the emergency department complaining of lightheadedness/ blurred vision today. Plan: -- EKG -- Labs -- Alcohol Serum -- Carbamazepine -- Magnesium -- Sodium Chloride -- Urine Culture -- Urinalysis -- Reassess and disposition Progress Notes: - Lab Interpretations Lab Results: 07/21/17 13:20 07/21/17 13:20 Lab Results 07/21/17 13:20: Carbamazepine < 3 L 07/21/17 13:20: Alcohol, Quantitative < 10 07/21/17 13:20: Sodium 140, Potassium 4.0, Chloride 101, Carbon Dioxide 28, Anion Gap 14, BUN 10, Creatinine 0.6 L, Est GFR ( Amer) > 60, Est GFR ( Non-Af Amer) > 60, Random Glucose 82, Calcium 8.7, Magnesium 1.7, Total Bilirubin 0.1 L, AST 25, ALT 30, Alkaline Phosphatase 46, Total Creatine Kinase 134, Total Protein 7.2, Albumin 4.3, Globulin 2.9, Albumin/Globulin Ratio 1.5 07/21/17 13:20: WBC 6.0, RBC 3.82, Hgb 11.4 L, Hct 34.4 L, MCV 90.1, MCH 29.8, MCHC 33.1, RDW 13.9, Plt Count 265, MPV 8.6, Gran % 41.9 L, Lymph % (Auto) 44.7 H, [place] % (Auto) 10.1 H, Eos % (Auto) 2.8, Baso % (Auto) 0.5, Gran # 2.53, Lymph # (Auto) 2.7, [place] # (Auto) 0.6, Eos # (Auto) 0.2, Baso # (Auto) 0.03 07/21/17 12:30: Urine Opiates Screen Negative, Urine Methadone Screen Negative, Ur Barbiturates Screen Negative, Ur Phencyclidine Scrn Negative, Ur Amphetamines Screen Negative, U Benzodiazepines Scrn Negative, U Oth Cocaine Metabols Negative, U Cannabinoids Screen Negative 07/21/17 12:30: Urine Color Light red, Urine Appearance Sl cloudy, Urine pH 7.5 , Ur Specific [place] 1.020, Urine Protein 100 H, Urine Glucose (UA) Negative, Urine Ketones Negative, Urine Blood Large H, Urine Nitrate Negative, Urine Bilirubin Negative, Urine Urobilinogen 1.0 H, Ur Leukocyte Esterase Trace H, Urine RBC 25 - 30, Urine WBC 5 - 10, Ur Epithelial Cells 6 - 8, Urine Bacteria Many, Urine Other Uyeast, Urine HCG, Qual Negative - Medication Orders Current Medication Orders: Discontinued Medications Sodium Chloride (Sodium Chloride 0.9%) 1,000 mls @ 1,000 mls/hr IV .Q1H STA Stop: 07/21/17 13:03 Last Admin: 07/21/17 12:25 Dose: 1,000 mls/hr eMAR Start Stop Document 07/21/17 12:25 SF (Rec: 07/21/17 12:46 SF [id number]) Intravenous Solution Start Date 07/21/17 Start Time 12:25 End Date 07/21/17 End time 13:25 Total Infusion Time 60 - Scribe Statement The provider has reviewed the documentation as recorded by the Scribe Melanie Jean All medical record entries made by the Scribe were at my direction and personally dictated by me. I have reviewed the chart and agree that the record accurately reflects my personal performance of the history, physical exam, medical decision making, and the department course for this patient. I have also personally directed, reviewed, and agree with the discharge instructions and disposition. Disposition/Present on Arrival - Present on Arrival Any Indicators Present on Arrival: No History of DVT/PE: No History of Uncontrolled Diabetes: No Urinary Catheter: No History of Decub. Ulcer: No History Surgical Site Infection Following: None - Disposition Have Diagnosis and Disposition been Completed?: Yes Diagnosis: Seizure Disposition: HOME/ ROUTINE Disposition Time: 15:18 Patient Plan: Discharge Condition: IMPROVED Print Language: YAKUT Additional Instructions: Please follow up with your regular neurologist with today's blood tests. Cotinue with your regular carbamazepine dosing taking your evening medication today . Referrals: Serafin Aadms MD [Primary Care Provider] - Follow up with primary Forms: [employer] (Arabic)
[2017-07-21 12:47] LABS: URINE COLOR LIGHT RED (YELLOW)
[2017-07-21 12:48] LABS: URINE APPEARANCE SL CLOUDY (CLEAR)
[2017-07-21 12:51] LABS: HCG,QUALITATIVE URINE NEGATIVE (NEGATIVE)
[2017-07-21 12:53] LABS: URINE BACTERIA MANY (NEG); URINE RBC 25 - 30 /hpf (0-2)
[2017-07-21 13:20] LABS: BARBITURATES, UR NEGATIVE (NEGATIVE); BENZODIAZEPINES, UR NEGATIVE (NEGATIVE); OPIATES, UR NEGATIVE (NEGATIVE); PHENCYCLIDINE, UR NEGATIVE (NEGATIVE)
[2017-07-21 13:26] LABS: BASO # 0.03 K/mm3 (0.0-2.0); BASO % 0.5 % (0.0-3.0); EOS # 0.2 (0.0-0.7); EOS % 2.8 % (1.5-5.0); GRAN # 2.53 (1.4-6.5); GRAN % 41.9 % (50.0-68.0); HEMOGLOBIN 11.4 g/dL (12.0-16.0); LYMPH # 2.7 (1.2-3.4); LYMPH % 44.7 % (22.0-35.0); MEAN CELL VOLUME 90.1 fl (80.0-105.0); MEAN CORPUSCULAR HEMOGLOBIN 29.8 pg (25.0-35.0); MEAN CORPUSCULAR HGB CONC 33.1 g/dl (31.0-37.0); MEAN PLATELET VOLUME 8.6 fl (7.0-11.0); MONO # 0.6 (0.1-0.6); MONO % 10.1 % (1.0-6.0); RBC 3.82 10^6/uL (3.5-6.1); RED CELL DISTRIBUTION WIDTH 13.9 % (11.5-14.5)
[2017-07-21 13:47] LABS: BLOOD UREA NITROGEN 10 mg/dL (7-21); CALCIUM 8.7 mg/dL (8.4-10.5); GFR AFRICAN-AMERICAN > 60; GFR NON-AFRICAN AMERICAN > 60
[2017-07-21 13:48] LABS: ALB/GLOB RATIO 1.5 (1.1-1.8); ALBUMIN 4.3 g/dL (3.0-4.8); ALT/SGPT 30 U/L (7-56); AST/SGOT 25 U/L (14-36)
[2017-07-21] MEDS ORDERED: Tmp-Smz 800 mg-160 mg DS Tab PO STA (15:39)
[2017-07-21 16:04] VITALS: BP 122/70; PULSE 66; RESP 17; O2SAT 99
--- NOTE | 2017-07-22 13:00 | CARD ---
APPROVED REPORT EKG Measurement Heart [id number] <Conclusion> Normal sinus rhythm Possible Left atrial enlargement
== END 2017-07-21 16:03 | disposition home or self-care (01) ==
LOC: ED 11:41
DX: R56.9 Unspecified convulsions (principal); F17.210 Nicotine dependence, cigarettes, uncomplicated
CPT/HCPCS: 80053; 80156; 80320; 80324; 80345; 80346; 80349; 80353; 80358; 80361; 81001; 82550; 82948; 83735; 83992; 84703; 85025; 87086; 93005; 96360; 99285; J7040

== ENCOUNTER 2017-11-01 02:06 | Observation (INO) | payer MEDICAID ==
[2017-11-01 02:07] VITALS: BMI 21.5
--- NOTE | 2017-11-01 02:57 | ED PDOC ---
Arrival/HPI - General Chief Complaint: Seizure Time Seen by Provider: 11/01/17 02:30 Historian: Patient - History of Present Illness Narrative History of Present Illness (Text): 11/01/17 02:49 26 year old female, whose past medical history includes traumatic brain injury and seizures, presents to the emergency department for evaluation status post epileptic episode. Patient states she does not remember what happened exactly, and informs she was asleep when it happened. Patient states her brother was home with her when it happened, and told her she fell and hit her head. Patient states she did not urinate nor bite her tongue. Patient informs she feels confused, with no physical pain besides a light headache. Patient takes Oxcarbazepine twice daily, and had taken her two doses before her seizure. Patient denies any fever, chills, dizziness, shortness of breath, chest pain, cough, abdominal pain, nausea, vomiting, diarrhea, back pain, neck pain, urinary output changes, or any other complaints. Time/Duration: Prior to Arrival Past Medical History - Provider Review Nursing Documentation Reviewed: Yes - Infectious Disease Hx of Infectious Diseases: None - Cardiac Hx Cardiac Disorders: No - Pulmonary Hx Respiratory Disorders: No - Neurological Hx Neurological Disorder: Yes Hx Seizures: Yes Other/Comment: Patient states tramatic brain injury. - HEENT Hx HEENT Disorder: No - Renal Hx Renal Disorder: No - Endocrine/Metabolic Hx Endocrine Disorders: No - Hematological/Oncological Hx Blood Disorders: No - Integumentary Hx Dermatological Disorder: No - Musculoskeletal/Rheumatological Hx Musculoskeletal Disorders: No - Gastrointestinal Hx Gastrointestinal Disorders: No - Genitourinary/Gynecological Hx Genitourinary Disorders: No - Psychiatric Hx Psychophysiologic Disorder: No Hx Substance Use: No - Anesthesia Hx Anesthesia: Yes Hx Anesthesia Reactions: No Family/Social History - Physician Review Nursing Documentation Reviewed: Yes Family/Social History: No Known Family HX Smoking Status: Heavy Smoker > 10 Cigarettes Daily Hx Alcohol Use: Yes Hx Substance Use: No Allergies/Home Meds Allergies/Adverse Reactions: Allergies No Known Allergies Allergy (Verified 11/01/17 02:25) Home Medications: Home Meds Medication Instructions Recorded Confirmed OXcarbazepine [Trileptal] 600 mg PO BID 02/26/17 11/01/17 Review of Systems - Physician Review All systems were reviewed & negative as marked: Yes - Review of Systems Constitutional: Normal. absent: Fevers, Night Sweats Eyes: Normal ENT: Normal Respiratory: Normal. absent: SOB, Cough Cardiovascular: Normal. absent: Chest Pain Gastrointestinal: Normal. absent: Abdominal Pain, Diarrhea, Nausea, Vomiting Genitourinary Female: Normal. absent: Urine Output Changes Musculoskeletal: Normal. absent: Back Pain, Neck Pain Skin: Normal Neurological: Headache (slight headache secondary to hitting her head during seizure), Seizure Endocrine: Normal Hemo/Lymphatic: Normal Psychiatric: Normal Physical Exam Vital Signs Reviewed: Yes Vital Signs Pulse Resp BP Pulse Ox 11/01/17 02:31 100 H 17 123/73 100 Temperature: Afebrile Blood Pressure: Normal Pulse: Regular Respiratory Rate: Normal Appearance: Positive for: Well-Appearing, Non-Toxic, Comfortable Pain Distress: None Mental Status: Positive for: Alert and Oriented X 3 - Systems Exam Head: Present: Atraumatic, Normocephalic Pupils: Present: PERRL Extroacular Muscles: Present: EOMI Conjunctiva: Present: Normal Mouth: Present: Moist Mucous Membranes Neck: Present: Normal Range of Motion Respiratory/Chest: Present: Clear to Auscultation, Good Air Exchange. No: Respiratory Distress, Accessory Muscle Use Cardiovascular: Present: Regular Rate and Rhythm, Normal S1, S2. No: Murmurs Abdomen: No: Tenderness, Distention, Peritoneal Signs Back: Present: Normal Inspection Upper Extremity: Present: Normal Inspection. No: Cyanosis, Edema Lower Extremity: Present: Normal Inspection. No: Edema Neurological: Present: GCS=15, CN II-XII Intact, Speech Normal Skin: Present: Warm, Dry, Normal Color. No: Rashes Psychiatric: Present: Alert, Oriented x 3, Normal Insight, Normal Concentration Medical Decision Making ED Course and Treatment: 11/01/17 02:58 Impression: 26 year old female presents to the emergency department for evaluation status post seizure. Differential Diagnoses Include But Are Not Limited To: Plan: -- CT head -- EKG -- Chest X-ray -- Ativan -- Urinalysis -- Reassess & disposition Progress Notes 11/01/17 03:57 EKG reviewed, shows: Normal Sinus Rhythm @ 92 bpm Normal EKG 11/01/17 05:05 Patient was endorsed to Dr. Ramirez who accepts the case. Patient was given 2mg Ativan and will be given her morning dose of Trileptal. - Lab Interpretations Lab Results: 11/01/17 02:23 11/01/17 02:23 Lab Results 11/01/17 03:17: Urine Color Yellow, Urine Appearance Sl cloudy, Urine pH 6.5, Ur Specific [place] 1.020, Urine Protein 100 H, Urine Glucose (UA) Negative, Urine Ketones Trace H, Urine Blood Negative, Urine Nitrate Negative, Urine Bilirubin Negative, Urine Urobilinogen 1.0 H, Ur Leukocyte Esterase Negative, Urine RBC 0 - 2, Urine WBC 0 - 2, Ur Epithelial Cells 6 - 8, Amorphous Sediment Few, Urine Bacteria Few 11/01/17 02:23: Beta HCG, Quant < 2.39 11/01/17 02:23: Sodium 137, Potassium 3.2 L, Chloride 98, Carbon Dioxide 21, Anion Gap 21 H, BUN 11, Creatinine 0.7, Est GFR ( Amer) > 60, Est GFR ( Non-Af Amer) > 60, Random Glucose 103, Calcium 9.0, Phosphorus 3.1, Magnesium 2.0, Total Bilirubin 0.4, AST 77 H D, ALT 29, Alkaline Phosphatase 56, Total Protein 7.6, Albumin 4.4, Globulin 3.2, Albumin/Globulin Ratio 1.4 11/01/17 02:23: WBC 6.2, RBC 4.24, Hgb 13.1, Hct 37.9, MCV 89.4, MCH 30.9, MCHC 34.6, RDW 13.5, Plt Count 277, MPV 8.3, Gran % 42.7 L, Lymph % (Auto) 44.3 H, [place] % (Auto) 11.1 H, Eos % (Auto) 1.6, Baso % (Auto) 0.3, Gran # 2.66, Lymph # (Auto) 2.8, [place] # (Auto) 0.7 H, Eos # (Auto) 0.1, Baso # (Auto) 0.02, ESR 13 - RAD Interpretation Radiology Orders: 11/01/17 02:39 HEAD W/O CONTRAST [CT] Stat 11/01/17 02:40 CHEST ONE VIEW [RAD] Stat - Medication Orders Current Medication Orders: Discontinued Medications Lorazepam (Ativan) 2 mg IVP ONCE ONE PRN Reason: Protocol Stop: 11/01/17 02:55 - Scribe Statement The provider has reviewed the documentation as recorded by the Scribe Yandel Núñez All medical record entries made by the Scribe were at my direction and personally dictated by me. I have reviewed the chart and agree that the record accurately reflects my personal performance of the history, physical exam, medical decision making, and the department course for this patient. I have also personally directed, reviewed, and agree with the discharge instructions and disposition. Disposition/Present on Arrival - Present on Arrival History of DVT/PE: No History of Uncontrolled Diabetes: No Urinary Catheter: No History of Decub. Ulcer: No History Surgical Site Infection Following: None - Disposition Referrals: Serafin Adams MD [Primary Care Provider] - Follow up with primary Forms: [employer] (Latvian)
[2017-11-01 03:09] LABS: BASO # 0.02 K/mm3 (0.0-2.0); BASO % 0.3 % (0.0-3.0); EOS # 0.1 (0.0-0.7); EOS % 1.6 % (1.5-5.0); GRAN # 2.66 (1.4-6.5); GRAN % 42.7 % (50.0-68.0); HEMOGLOBIN 13.1 g/dL (12.0-16.0); LYMPH # 2.8 (1.2-3.4); LYMPH % 44.3 % (22.0-35.0); MEAN CELL VOLUME 89.4 fl (80.0-105.0); MEAN CORPUSCULAR HEMOGLOBIN 30.9 pg (25.0-35.0); MEAN CORPUSCULAR HGB CONC 34.6 g/dl (31.0-37.0); MEAN PLATELET VOLUME 8.3 fl (7.0-11.0); MONO # 0.7 (0.1-0.6); MONO % 11.1 % (1.0-6.0); RBC 4.24 10^6/uL (3.5-6.1); RED CELL DISTRIBUTION WIDTH 13.5 % (11.5-14.5); WHITE BLOOD COUNT 6.2 10^3/ul (4.5-11.0)
[2017-11-01 03:21] LABS: ALB/GLOB RATIO 1.4 (1.1-1.8); ALBUMIN 4.4 g/dL (3.0-4.8); ALT/SGPT 29 U/L (7-56); AST/SGOT 77 U/L (14-36); BLOOD UREA NITROGEN 11 mg/dL (7-21); GFR NON-AFRICAN AMERICAN > 60
[2017-11-01 03:47] LABS: PH,URINE 6.5 (4.7-8.0); URINE BILIRUBIN NEGATIVE (NEGATIVE); URINE BLOOD NEGATIVE (NEGATIVE); URINE GLUCOSE (UA) NEGATIVE (NEGATIVE); URINE LEUKOCYTE ESTERASE NEGATIVE Leu/uL (NEGATIVE); URINE PROTEIN 100 mg/dL (<30 mg/dL)
[2017-11-01 03:48] LABS: URINE APPEARANCE SL CLOUDY (CLEAR); URINE COLOR YELLOW (YELLOW)
[2017-11-01 04:03] LABS: URINE RBC 0 - 2 /hpf (0-2)
[2017-11-01 04:04] LABS: URINE AMORPHOUS SEDIMENT FEW; URINE BACTERIA FEW (NEG); URINE WBC 0 - 2 /hpf (0-6)
[2017-11-01] MEDS ORDERED: Potassium Chloride 20 mEq ER Tab PO STA (05:33)
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
[2017-11-01 06:04] LABS: BARBITURATES, UR NEGATIVE (NEGATIVE); BENZODIAZEPINES, UR NEGATIVE (NEGATIVE); OPIATES, UR NEGATIVE (NEGATIVE); PHENCYCLIDINE, UR NEGATIVE (NEGATIVE)
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
--- NOTE | 2017-11-01 09:01 | CT ---
Date of service: 11/01/2017 PROCEDURE: CT HEAD WITHOUT CONTRAST. HISTORY: headache COMPARISON: 10/09/2016 TECHNIQUE: Axial computed tomography images were obtained through the head/brain without intravenous contrast. Radiation dose: Total exam DLP = 894 mGy-cm. This CT exam was performed using one or more of the following dose reduction techniques: Automated exposure control, adjustment of the mA and/or kV according to patient size, and/or use of iterative reconstruction technique. FINDINGS: HEMORRHAGE: No intracranial hemorrhage. BRAIN: No mass effect or edema. Encephalomalacia is seen in the left frontal lobe. This is unchanged. There are no acute findings VENTRICLES: Unremarkable. No hydrocephalus. CALVARIUM: Unremarkable. PARANASAL SINUSES: Unremarkable as visualized. No significant inflammatory changes. MASTOID AIR CELLS: Unremarkable as visualized. No inflammatory changes. OTHER FINDINGS: The report concurs with the preliminary [facility] report IMPRESSION: Encephalomalacia is seen in the left frontal lobe. This is unchanged. There are no acute findings
[2017-11-01 09:11] LABS: BASO # 0.02 K/mm3 (0.0-2.0); BASO % 0.3 % (0.0-3.0); EOS % 0.5 % (1.5-5.0); GRAN # 3.72 (1.4-6.5); GRAN % 58.6 % (50.0-68.0); HEMOGLOBIN 12.4 g/dL (12.0-16.0); LYMPH # 2.1 (1.2-3.4); LYMPH % 33.3 % (22.0-35.0); MEAN CORPUSCULAR HEMOGLOBIN 30.4 pg (25.0-35.0); MEAN CORPUSCULAR HGB CONC 34.2 g/dl (31.0-37.0); MEAN PLATELET VOLUME 8.3 fl (7.0-11.0); MONO # 0.5 (0.1-0.6); MONO % 7.3 % (1.0-6.0); RBC 4.08 10^6/uL (3.5-6.1); RED CELL DISTRIBUTION WIDTH 13.3 % (11.5-14.5); WHITE BLOOD COUNT 6.3 10^3/ul (4.5-11.0)
[2017-11-01 09:24] LABS: ALB/GLOB RATIO 1.3 (1.1-1.8); ALT/SGPT 36 U/L (7-56); AST/SGOT 57 U/L (14-36); BLOOD UREA NITROGEN 8 mg/dL (7-21); CALCIUM 8.9 mg/dL (8.4-10.5); GFR NON-AFRICAN AMERICAN > 60
--- NOTE | 2017-11-01 11:46 | RAD ---
Date of service: 11/01/2017 PROCEDURE: CHEST RADIOGRAPH, 1 VIEW HISTORY: seizure COMPARISON: None available. FINDINGS: LUNGS: Clear. PLEURA: No pneumothorax or pleural fluid seen. CARDIOVASCULAR: Normal. OSSEOUS STRUCTURES: No significant abnormalities. VISUALIZED UPPER ABDOMEN: Normal. OTHER FINDINGS: None. IMPRESSION: No active disease.
--- NOTE | 2017-11-01 15:38 | CARD ---
APPROVED REPORT Date of service: 11/01/2017 EKG Measurement Heart [id number] <Conclusion> Normal sinus rhythm Normal ECG
[2017-11-02] MEDS ORDERED: Pantoprazole 40 mg EC Tab PO SCH (06:00)
[2017-11-02 06:23] LABS: BASO # 0.01 K/mm3 (0.0-2.0); BASO % 0.2 % (0.0-3.0); EOS # 0.1 (0.0-0.7); EOS % 2.1 % (1.5-5.0); GRAN # 2.19 (1.4-6.5); GRAN % 40.8 % (50.0-68.0); HEMOGLOBIN 12.5 g/dL (12.0-16.0); LYMPH # 2.4 (1.2-3.4); LYMPH % 44.9 % (22.0-35.0); MEAN CELL VOLUME 89.8 fl (80.0-105.0); MEAN CORPUSCULAR HEMOGLOBIN 30.3 pg (25.0-35.0); MEAN CORPUSCULAR HGB CONC 33.8 g/dl (31.0-37.0); MEAN PLATELET VOLUME 8.4 fl (7.0-11.0); MONO # 0.6 (0.1-0.6); RBC 4.12 10^6/uL (3.5-6.1); RED CELL DISTRIBUTION WIDTH 13.4 % (11.5-14.5); WHITE BLOOD COUNT 5.4 10^3/ul (4.5-11.0)
[2017-11-02 07:03] VITALS: RESP 18
[2017-11-02 07:33] LABS: ALB/GLOB RATIO 1.4 (1.1-1.8); ALT/SGPT 29 U/L (7-56); AST/SGOT 32 U/L (14-36); BLOOD UREA NITROGEN 9 mg/dL (7-21); CALCIUM 9.3 mg/dL (8.4-10.5); GFR NON-AFRICAN AMERICAN > 60
--- NOTE | 2017-11-02 08:08 | CP.PCM.PN ---
Subjective - Date & Time of Evaluation Date of Evaluation: 11/02/17 Time of Evaluation: 09:00 - Subjective Subjective: PGY-1 Carol Herring D.O. Neurology progress note for Dr. Obregon's service: Patient is seen and examined this morning. No events, including seizure activity , were reported over night. Patient is tolerating new medication, Lamictal, well. No evidence of rash. She states that her muscle aches are improved. She denies TIM. Objective - Vital Signs/Intake and Output Vital Signs (last 24 hours): Temp Pulse Resp BP Pulse Ox 98.4 F 72 18 101/62 100 11/02/17 06:00 11/02/17 06:00 11/02/17 06:00 11/02/17 06:00 11/02/17 00:01 Intake and Output: 11/02/17 11/02/17 06:59 18:59 Intake Total 360 Balance 360 - Medications Medications: Current Medications Acetaminophen (Tylenol 325mg Tab) 650 mg PO Q6H PRN PRN Reason: Headache Last Admin: 11/01/17 18:26 Dose: 650 mg Lamotrigine (Lamictal) 50 mg PO DAILY FAINA PRN Reason: Protocol Last Admin: 11/01/17 13:16 Dose: 50 mg Oxcarbazepine (Trileptal) 600 mg PO HS FAINA PRN Reason: Protocol Last Admin: 11/01/17 22:27 Dose: 600 mg Oxcarbazepine (Trileptal) 900 mg PO DAILY FAINA PRN Reason: Protocol Pantoprazole Sodium (Protonix Ec Tab) 40 mg PO 0600 [facility] Last Admin: 11/02/17 05:19 Dose: 40 mg - Labs Labs: 11/02/17 05:20 11/02/17 05:20 - Constitutional Appears: Non-toxic, No Acute Distress - Head Exam Head Exam: ATRAUMATIC, NORMAL INSPECTION, NORMOCEPHALIC - Eye Exam Eye Exam: EOMI, Normal appearance, PERRL - ENT Exam ENT Exam: Mucous Membranes Moist - Neck Exam Neck Exam: Normal Inspection - Respiratory Exam Respiratory Exam: Clear to Ausculation Bilateral, NORMAL BREATHING PATTERN - Cardiovascular Exam Cardiovascular Exam: REGULAR RHYTHM, +S1, +S2 - GI/Abdominal Exam GI & Abdominal Exam: Soft - Rectal Exam Rectal Exam: Deferred - Extremities Exam Extremities Exam: Normal Inspection - Neurological Exam Neurological Exam: Alert, Awake, CN II-XII Intact, Oriented x3, Reflexes Normal Neuro motor strength exam: Left Upper Extremity: 5, Right Upper Extremity: 5, Left Lower Extremity: 5, Right Lower Extremity: 5 - Psychiatric Exam Psychiatric exam: Normal Affect, Normal Mood - Skin Skin Exam: Dry, Intact, Normal Color, Warm Assessment and Plan - Assessment and Plan (Free Text) Assessment: Patient is a 26 you female with a history of TBI and seizures. She presents with an apparent breakthrough seizure. Patient reports several seizures despite compliance with medication. It it likely monotherapy is not sufficient enough to control patient's seizures. Plan: Seizure- patient has h/o TBI with seizures, reports compliance with antiseizure medication - CT head: no acute changes, chronic encephalomalacia in L frontal lobe - UDS negative - EEG: normal, no epileptiform activity - F/u oxcarbazepine metabolite level - Replete K, Mg as needed - Increase Trileptal to 900 mg PO AM and 600 mg PO HS - Start Lamictal 50 mg PO daily- monitor for tolerance, rash - Encouraged patient to continue seeing outpatient neurologist- next appointment 11/[address] Serafin Adams - Encouraged patient to stop drinking alcohol - Encouraged patient to establish good sleep hygiene by having a consistent bedtime and getting at least 6-8 hours of sleep each night - PT Neurology with sign off case at this time. Please re-consult if necessary. Patient can follow-up with Dr. Adams or Dr. Obregon. Case was discussed with attending, Dr. Obregon.
--- NOTE | 2017-11-02 15:01 | US ---
HISTORY: Leg pain and swelling. Evaluate for DVT PHYSICIAN(S): Yandel Cartwright MD. TECHNIQUE: Duplex sonography and color-flow Doppler with graded compression were used to evaluate the deep venous systems of both lower extremities. FINDINGS: The visualized deep venous systems of both lower extremities are sonographically normal and compressible. Normal wave forms and augmentation are seen. There is no sonographic evidence for deep venous thrombosis in the visualized segments of both lower extremities. IMPRESSION: No sonographic evidence for deep venous thrombosis in the visualized segments of both lower extremities.
[2017-11-02 18:13] VITALS: BP 122/74; PULSE 75; TEMP 98.5; O2SAT 99
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
== END 2017-11-02 18:39 | disposition home or self-care (01) ==
LOC: ED 02:06 → ERH 05:02 → 2RNO 06:24
PROVIDERS: ADMIT Internal Medicine; ATTEND Internal Medicine
DX: G40.409 Other generalized epilepsy and epileptic syndromes, not intractable, without status epilepticus (principal); G93.89 Other specified disorders of brain; F17.210 Nicotine dependence, cigarettes, uncomplicated; H61.21 Impacted cerumen, right ear; W08.XXXA Fall from other furniture, initial encounter; Z87.820 Personal history of traumatic brain injury
CPT/HCPCS: 36415; 70450; 71045; 80053; 80183; 80324; 80345; 80346; 80349; 80353; 80358; 80361; 81001; 82550; 83735; 83992; 84100; 84702; 85025; 85651; 93005; 93970; 96374; 97116; 97161; 99285; G0378; G8978; G8979; G8980; J2060

== ENCOUNTER 2017-11-11 14:38 | Emergency (ER) | payer MEDICAID ==
[2017-11-11 14:42] VITALS: BMI 20.7
[2017-11-11 14:51] VITALS: RESP 19; TEMP 98
[2017-11-11] MEDS ORDERED: Sodium Chloride 0.9% 1,000 ML IV STA (15:33)
--- NOTE | 2017-11-11 15:37 | ED PDOC ---
Arrival/HPI - General Chief Complaint: Dizziness/Lightheaded Time Seen by Provider: 11/11/17 14:47 Historian: Patient - History of Present Illness Narrative History of Present Illness (Text): 11/11/17 15:34 you were treated in the ED today for hx of seizures and have had monthly and was recently admitted with increase of trileptal to 900mg in the morning and 600mg in the evening which your compliant with and now having dizziness/ lightheaded today but otherwise without any loss of consciousness/seizures/ nausea/vomiting/headache/dizziness/difficulty breathing/chest pain/abdomen pain/ numbness/tingling/loss of limb function/pain with urination. 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 - HEENT Hx HEENT Disorder: No - Renal Hx Renal Disorder: No - Endocrine/Metabolic Hx Endocrine Disorders: No - Hematological/Oncological Hx Blood Disorders: No - Integumentary Hx Dermatological Disorder: No - Musculoskeletal/Rheumatological Hx Musculoskeletal Disorders: No - Gastrointestinal Hx Gastrointestinal Disorders: No - Genitourinary/Gynecological Hx Genitourinary Disorders: No - Psychiatric Hx Psychophysiologic Disorder: No Hx Substance Use: No - Anesthesia Hx Anesthesia: Yes Hx Anesthesia Reactions: No Hx Malignant Hyperthermia: No Family/Social History - Physician Review Nursing Documentation Reviewed: Yes Family/Social History: No Known Family HX Smoking Status: Heavy Smoker > 10 Cigarettes Daily Hx Alcohol Use: Yes Frequency of alcohol use: Socially Hx Substance Use: No Allergies/Home Meds Allergies/Adverse Reactions: Allergies levetiracetam [From Keppra] Allergy (Verified 11/01/17 05:11) ANAPHYLAXIS Review of Systems - Review of Systems Constitutional: Normal Eyes: Normal ENT: Normal Respiratory: Normal Cardiovascular: Normal Gastrointestinal: Normal Genitourinary Female: Normal Musculoskeletal: Normal Skin: Normal Neurological: Dizziness Endocrine: Normal Hemo/Lymphatic: Normal Psychiatric: Normal Physical Exam Vital Signs Reviewed: Yes Vital Signs Temp Pulse Resp BP Pulse Ox 11/11/17 15:36 98 F 85 19 123/53 L 99 11/11/17 14:47 98 F 75 19 117/75 100 Temperature: Afebrile Blood Pressure: Normal Pulse: Regular Respiratory Rate: Normal Appearance: Positive for: Well-Appearing, Non-Toxic, Comfortable Pain Distress: None Mental Status: Positive for: Alert and Oriented X 3 Finger Stick Blood Glucose: 117 - Systems Exam Head: Present: Atraumatic, Normocephalic Pupils: Present: PERRL Extroacular Muscles: Present: EOMI Conjunctiva: Present: Normal Ears: Present: Normal Mouth: Present: Moist Mucous Membranes Pharnyx: Present: Normal Nose (External): Present: Atraumatic Nose (Internal): Present: Normal Inspection Neck: Present: Normal Range of Motion Respiratory/Chest: Present: Clear to Auscultation, Good Air Exchange Cardiovascular: Present: Regular Rate and Rhythm Abdomen: No: Tenderness, Distention, Normal Bowel Sounds, Peritoneal Signs, Rebound, Guarding, McBurney's Point Tender, Rovsing's Sign Present, Hernias, Feeding Tubes, Ostomy Tubes, Mass/Organomegaly, Scars, Other Back: Present: Normal Inspection Upper Extremity: Present: Normal Inspection Lower Extremity: Present: Normal Inspection Neurological: Present: GCS=15, CN II-XII Intact, Speech Normal, Motor Func Grossly Intact Skin: Present: Warm, Normal Color Psychiatric: Present: Alert, Oriented x 3, Normal Insight, Normal Concentration Medical Decision Making ED Course and Treatment: you were treated in the ED today for hx of seizures and have had monthly and was recently admitted with increase of trileptal to 900mg in the morning and 600mg in the evening which your compliant with, and lamictal 50mg daily which you haven't been taking and now having dizziness/lightheaded today but otherwise without any loss of consciousness/seizures/nausea/vomiting/headache/ dizziness/difficulty breathing/chest pain/abdomen pain/numbness/tingling/loss of limb function/pain with urination/thoughts to harm yourself or others or hallucinations. You were otherwise breathing easily, smiling and talking easily , good strength/sensation, walking easily, clear lungs, no abdomen tenderness, no spine tenderness, no fever temp 98, stable heart rate 75, stable breathing rate 19, excellent oxygen level 100% room air, stable blood pressure 117/75 which we recommend repeat in 2-3 days primary care office to determine further treatment, you have blood tests no infection count 3.6, stable blood level hemoglobin 11.5/platelets 208, blood sugar initial 64 and finger stick 117, creatinine 314 with intravenous fluids given, stable chemistry, heart blood test negative less than 0.01, urine test/urine test refused and cautioned for complications, ECG normal sinus rhythm, discussed your case with Dr. Redd neurology who stated to take your medications as prescribed ie trileptal and lamictal/can be discharged and to followup with either Dr. Burgos or Dr. Adams neurology in the next few days, observation done in the ED with improvement, counselled to stop driving till first clinic visit and thus discharged home. 1. Recommend follow-up primary care 2 days to review symptoms, get your oxcarbamazapine levels, referral to neurology Dr. Adams to review your symptoms/review your medications, referral gastroenterology clinic for mildly elevated liver test AST 81 to ensure further care, referral to endocrine clinic for mildly low blood sugar 64 initial to ensure further care. 4. If any worsening pain, fever, chills, nausea, vomiting, difficulty breathing, numbness , loss of limb function, pain with urination or any medical condition then return to the ED. paged Dr. Adams office [phone] and the neurologist engine emission technician Dr. Alvarez stated doesn't cover Dr. Adams thus paged Dr. Redd Reassessment Condition: Re-examined, Improved - Lab Interpretations Lab Results: 11/11/17 15:40 11/11/17 15:40 Lab Results 11/11/17 15:40: Sodium 140, Potassium 3.6, Chloride 103, Carbon Dioxide 29, Anion Gap 12, BUN 11, Creatinine 0.6 L, Est GFR ( Amer) > 60, Est GFR ( Non-Af Amer) > 60, Random Glucose 64 L, Calcium 8.8, Magnesium 1.8, Total Bilirubin < 0.1 L, AST 81 H D, ALT 49, Alkaline Phosphatase 44, Lactate Dehydrogenase 549, Total Creatine Kinase 314 H, CK-MB (CK-2) Pending, CK-MB (CK- 2) % Pending, Troponin I < 0.01, Total Protein 6.8, Albumin 3.9, Globulin 2.9, Albumin/Globulin Ratio 1.4 11/11/17 15:40: PT 12.9 H, INR 1.13, APTT 31.3 11/11/17 15:40: WBC 3.6 L D, RBC 3.79, Hgb 11.5 L, Hct 34.4 L, MCV 90.8, MCH 30.3, MCHC 33.4, RDW 13.3, Plt Count 208, MPV 8.0, Gran % 30.3 L, Lymph % (Auto ) 52.4 H, [place] % (Auto) 13.6 H, Eos % (Auto) 3.1, Baso % (Auto) 0.6, Gran # 1.09 L, Lymph # (Auto) 1.9, [place] # (Auto) 0.5, Eos # (Auto) 0.1, Baso # (Auto) 0.02 11/11/17 14:53: POC Glucose (mg/dL) 117 H I have reviewed the lab results: Yes - EKG Interpretation Interpreted by ED Physician: Yes (NSR) Type: 12 lead EKG - Medication Orders Current Medication Orders: Sodium Chloride (Sodium Chloride 0.9%) 1,000 mls @ 999 mls/hr IV .Q1H1M STA Stop: 11/11/17 16:33 Last Admin: 11/11/17 15:47 Dose: 999 mls/hr eMAR Start Stop Document 11/11/17 15:47 GMI (Rec: 11/11/17 15:47 GMI [id number]) Intravenous Solution Start Date 11/11/17 Start Time 15:47 Disposition/Present on Arrival - Present on Arrival Any Indicators Present on Arrival: No History of DVT/PE: No History of Uncontrolled Diabetes: No Urinary Catheter: No History of Decub. Ulcer: No History Surgical Site Infection Following: None - Disposition Have Diagnosis and Disposition been Completed?: Yes Diagnosis: Dizziness Disposition: HOME/ ROUTINE Disposition Time: 16:35 Patient Plan: Discharge Patient Problems: Current Active Problems Problem Status Onset Dizziness Acute Condition: IMPROVED Discharge Instructions (ExitCare): Seizures, Adult (DC) Additional Instructions: you were treated in the ED today for hx of seizures and have had monthly and was recently admitted with increase of trileptal to 900mg in the morning and 600mg in the evening which your compliant with, and lamictal 50mg daily which you haven't been taking and now having dizziness/lightheaded today but otherwise without any loss of consciousness/seizures/nausea/vomiting/headache/ dizziness/difficulty breathing/chest pain/abdomen pain/numbness/tingling/loss of limb function/pain with urination/thoughts to harm yourself or others or hallucinations. You were otherwise breathing easily, smiling and talking easily , good strength/sensation, walking easily, clear lungs, no abdomen tenderness, no spine tenderness, no fever temp 98, stable heart rate 75, stable breathing rate 19, excellent oxygen level 100% room air, stable blood pressure 117/75 which we recommend repeat in 2-3 days primary care office to determine further treatment, you have blood tests no infection count 3.6, stable blood level hemoglobin 11.5/platelets 208, blood sugar initial 64 and finger stick 117, creatinine 314 with intravenous fluids given, stable chemistry, heart blood test negative less than 0.01, urine test/urine test refused and cautioned for complications, ECG normal sinus rhythm, discussed your case with Dr. Redd neurology who stated to take your medications as prescribed ie trileptal and lamictal/can be discharged and to followup with either Dr. Burgos or Dr. Adams neurology in the next few days, observation done in the ED with improvement, counselled to stop driving till first clinic visit and thus discharged home. 1. Recommend follow-up primary care 2 days to review symptoms, get your oxcarbamazapine levels, referral to neurology Dr. Adams to review your symptoms/review your medications, referral gastroenterology clinic for mildly elevated liver test AST 81 to ensure further care, referral to endocrine clinic for mildly low blood sugar 64 initial to ensure further care. 4. If any worsening pain, fever, chills, nausea, vomiting, difficulty breathing, numbness , loss of limb function, pain with urination or any medical condition then return to the ED. Referrals: Serafin Adams MD [Primary Care Provider] - Follow up with primary Thaddeus Obregon MD [Staff Provider] - Follow up with primary Forms: [employer] (Khmer)
[2017-11-11 15:44] VITALS: BP 123/53; PULSE 85; O2SAT 99
[2017-11-11 15:58] LABS: BASO # 0.02 K/mm3 (0.0-2.0); BASO % 0.6 % (0.0-3.0); EOS # 0.1 (0.0-0.7); EOS % 3.1 % (1.5-5.0); GRAN # 1.09 (1.4-6.5); GRAN % 30.3 % (50.0-68.0); HEMOGLOBIN 11.5 g/dL (12.0-16.0); LYMPH # 1.9 (1.2-3.4); LYMPH % 52.4 % (22.0-35.0); MEAN CELL VOLUME 90.8 fl (80.0-105.0); MEAN CORPUSCULAR HEMOGLOBIN 30.3 pg (25.0-35.0); MEAN CORPUSCULAR HGB CONC 33.4 g/dl (31.0-37.0); MONO # 0.5 (0.1-0.6); MONO % 13.6 % (1.0-6.0); RBC 3.79 10^6/uL (3.5-6.1); RED CELL DISTRIBUTION WIDTH 13.3 % (11.5-14.5); WHITE BLOOD COUNT 3.6 10^3/ul (4.5-11.0)
[2017-11-11 16:06] LABS: INR 1.13; PARTIAL THROMBOPLASTIN TIME 31.3 Seconds (25.1-36.5); PROTHROMBIN TIME 12.9 SECONDS (9.4-12.5)
[2017-11-11 16:22] LABS: ALB/GLOB RATIO 1.4 (1.1-1.8); ALBUMIN 3.9 g/dL (3.0-4.8); ALT/SGPT 49 U/L (7-56); AST/SGOT 81 U/L (14-36); BLOOD UREA NITROGEN 11 mg/dL (7-21); CALCIUM 8.8 mg/dL (8.4-10.5); GFR NON-AFRICAN AMERICAN > 60
[2017-11-11 16:23] LABS: TROPONIN I < 0.01 ng/mL
[2017-11-11 16:37] LABS: CK-MB 0.6 ng/mL (0.0-3.6)
--- NOTE | 2017-11-12 12:12 | CARD ---
APPROVED REPORT Date of service: 11/11/2017 EKG Measurement Heart [id number] <Conclusion> Normal sinus rhythm Normal ECG
== END 2017-11-11 17:26 | disposition home or self-care (01) ==
LOC: ED 14:38
DX: R42 Dizziness and giddiness (principal)
CPT/HCPCS: 80053; 80183; 82550; 82553; 82948; 83615; 83735; 84484; 85025; 85610; 85730; 93005; 99285; J7030

== ENCOUNTER 2018-03-04 15:42 | Emergency (ER) | payer MEDICAID ==
[2018-03-04 15:43] VITALS: BMI 20.7
[2018-03-04 15:51] VITALS: TEMP 98.2; O2SAT 98
--- NOTE | 2018-03-04 15:56 | ED PDOC ---
Arrival/HPI - General Chief Complaint: Seizure Time Seen by Provider: 03/04/18 15:44 Historian: Patient - History of Present Illness Time/Duration: Prior to Arrival Symptom Onset: Sudden Symptom Course: Unchanged Associated Symptoms (Text): 03/04/18 15:53 Patient arrives from home via [employer]. She reports that she was in bed at home and believes that she had a seizure as she woke up and had bitten her tongue. No loss of bowel or bladder control. 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 She reports she has been taking her medications. The seizure was unwitnessed. She denies any injury or trauma other than biting her tongue, as she was lying in bed. She is awake alert cooperative. No fever or chills. Past Medical History - Infectious Disease Hx of Infectious Diseases: None - Tetanus Immunization Tetanus Immunization: Unknown - Reproductive Menopause: No - Cardiac Hx Cardiac Disorders: No - Pulmonary Hx Respiratory Disorders: No - Neurological Hx Neurological Disorder: Yes Hx Seizures: Yes Other/Comment: hx tramatic brain injury. - HEENT Hx HEENT Disorder: No - Renal Hx Renal Disorder: No - Endocrine/Metabolic Hx Endocrine Disorders: No - Hematological/Oncological Hx Blood Disorders: No - Integumentary Hx Dermatological Disorder: No - Musculoskeletal/Rheumatological Hx Musculoskeletal Disorders: No - Gastrointestinal Hx Gastrointestinal Disorders: No - Genitourinary/Gynecological Hx Genitourinary Disorders: No - Psychiatric Hx Psychophysiologic Disorder: No Hx Substance Use: No - Anesthesia Hx Anesthesia: Yes Hx Anesthesia Reactions: No Hx Malignant Hyperthermia: No Family/Social History - Physician Review Nursing Documentation Reviewed: Yes Family/Social History: Unknown Family HX Smoking Status: Heavy Smoker > 10 Cigarettes Daily Hx Alcohol Use: Yes Frequency of alcohol use: Socially Hx Substance Use: No Allergies/Home Meds Allergies/Adverse Reactions: Allergies levetiracetam [From Keppra] Allergy (Verified 11/01/17 05:11) ANAPHYLAXIS Review of Systems - Physician Review All systems were reviewed & negative as marked: Yes - Review of Systems Constitutional: Normal Respiratory: Normal Cardiovascular: Normal Gastrointestinal: Normal Genitourinary Female: Normal Neurological: Seizure. absent: Headache, Dizziness, Focal Weakness, Gait Changes, Speech Changes, Facial Droop, Disequilibrium Physical Exam Vital Signs Temp Pulse Resp BP Pulse Ox 03/04/18 15:49 98.2 F 106 H 18 133/93 H 98 Temperature: Afebrile Blood Pressure: Hypertensive Pulse: Tachycardic Respiratory Rate: Normal Appearance: Positive for: Well-Appearing, Non-Toxic, Uncomfortable Pain Distress: Mild Mental Status: Positive for: Alert and Oriented X 3 - Systems Exam Head: Present: Atraumatic, Normocephalic Pupils: Present: PERRL Extroacular Muscles: Present: EOMI Conjunctiva: Present: Normal Ears: Present: NORMAL TM, Normal Canal. No: Erythema, TM Bulging Mouth: Present: Moist Mucous Membranes. No: Normal Tounge (minimal abrasion left anterior tongue secondary to biting) Neck: Present: Normal Range of Motion Respiratory/Chest: Present: Clear to Auscultation, Good Air Exchange. No: Respiratory Distress, Accessory Muscle Use Cardiovascular: Present: Regular Rate and Rhythm, Normal S1, S2. No: Murmurs Abdomen: No: Tenderness, Distention, Peritoneal Signs, Rebound, Guarding Upper Extremity: Present: Normal Inspection. No: Cyanosis, Edema Lower Extremity: Present: Normal Inspection. No: Edema Neurological: Present: GCS=15, CN II-XII Intact, Speech Normal, Motor Func Grossly Intact, Normal Sensory Function, Normal Cerebellar Funct, Gait Normal Skin: Present: Warm, Dry, Normal Color. No: Rashes Psychiatric: Present: Alert, Oriented x 3, Normal Insight, Normal Concentration Medical Decision Making ED Course and Treatment: 03/04/18 17:16 Recurrent seizure. Patient reports she has been taking her medication. Leukocytosis secondary to stress. Discharge home accompanied by family to follow-up with her own neurologist. Follow up in the emergency department as needed. Disposition/Present on Arrival - Present on Arrival Any Indicators Present on Arrival: No History of DVT/PE: No History of Uncontrolled Diabetes: No Urinary Catheter: No History of Decub. Ulcer: No History Surgical Site Infection Following: None - Disposition Have Diagnosis and Disposition been Completed?: Yes Diagnosis: Breakthrough seizure, Recurrent seizures Disposition: HOME/ ROUTINE Disposition Time: 17:17 Patient Plan: Discharge Patient Problems: Current Active Problems Problem Status Onset Leukocytosis Acute Peritonsillar abscess Acute Condition: GOOD Discharge Instructions (ExitCare): Seizures, Adult (DC) Forms: [employer] (Azerbaijani)
[2018-03-04 16:46] LABS: ALB/GLOB RATIO 1.3 (1.1-1.8); ALBUMIN 4.8 g/dL (3.0-4.8); ALT/SGPT 24 U/L (7-56); AST/SGOT 27 U/L (14-36); BASO # 0.02 K/mm3 (0.0-2.0); BASO % 0.1 % (0.0-3.0); BLOOD UREA NITROGEN 9 mg/dL (7-21); CALCIUM 9.7 mg/dL (8.4-10.5); EOS % 0.2 % (1.5-5.0); GFR NON-AFRICAN AMERICAN > 60; GRAN # 12.89 (1.4-6.5); GRAN % 79.1 % (50.0-68.0); HEMOGLOBIN 13.3 g/dL (12.0-16.0); LYMPH % 12.5 % (22.0-35.0); MEAN CORPUSCULAR HEMOGLOBIN 30.4 pg (25.0-35.0); MEAN PLATELET VOLUME 8.8 fl (7.0-11.0); MONO # 1.3 (0.1-0.6); MONO % 8.1 % (1.0-6.0); RBC 4.38 10^6/uL (3.5-6.1); RED CELL DISTRIBUTION WIDTH 13.4 % (11.5-14.5); WHITE BLOOD COUNT 16.3 10^3/uL (4.5-11.0)
[2018-03-04 17:48] VITALS: BP 120/65; PULSE 80; RESP 16
== END 2018-03-04 17:48 | disposition home or self-care (01) ==
LOC: ED 15:42
DX: G40.909 Epilepsy, unspecified, not intractable, without status epilepticus (principal); Z87.820 Personal history of traumatic brain injury

== ENCOUNTER 2018-03-05 09:29 | Observation (INO) | payer MEDICAID ==
[2018-03-05] MEDS ORDERED: cefTRIAXone 2 GM IN NS 2 GM/100 ML BAG IVPB STA (09:44)
[2018-03-05] MEDS ORDERED: Sodium Chloride 0.9% 1,000 ML IV ONE (09:45)
[2018-03-05 09:51] VITALS: RESP 18
[2018-03-05 10:25] LABS: BASO # 0.02 K/mm3 (0.0-2.0); BASO % 0.1 % (0.0-3.0); EOS % 0.1 % (1.5-5.0); GRAN # 16.4 (1.4-6.5); GRAN % 83.9 % (50.0-68.0); HEMOGLOBIN 13.6 g/dL (12.0-16.0); LYMPH # 1.4 (1.2-3.4); LYMPH % 7.3 % (22.0-35.0); MEAN CELL VOLUME 92.3 fl (80.0-105.0); MEAN CORPUSCULAR HEMOGLOBIN 30.8 pg (25.0-35.0); MEAN CORPUSCULAR HGB CONC 33.4 g/dl (31.0-37.0); MEAN PLATELET VOLUME 8.6 fl (7.0-11.0); MONO # 1.7 (0.1-0.6); MONO % 8.6 % (1.0-6.0); RBC 4.41 10^6/uL (3.5-6.1); RED CELL DISTRIBUTION WIDTH 13.3 % (11.5-14.5); WHITE BLOOD COUNT 19.5 10^3/uL (4.5-11.0)
[2018-03-05 10:38] LABS: ALB/GLOB RATIO 1.2 (1.1-1.8); ALBUMIN 4.8 g/dL (3.0-4.8); ALT/SGPT 21 U/L (7-56); AST/SGOT 25 U/L (14-36); BLOOD UREA NITROGEN 6 mg/dL (7-21); CALCIUM 9.5 mg/dL (8.4-10.5); GFR NON-AFRICAN AMERICAN > 60
--- NOTE | 2018-03-05 10:53 | ED PDOC ---
Arrival/HPI - General Chief Complaint: ENT Problem Time Seen by Provider: 03/05/18 09:35 Historian: Patient - History of Present Illness Narrative History of Present Illness (Text): 03/05/18 10:50 27 year old female smoker, whose past medical history includes a seizure disorder, who presents to the Emergency department complaining of sore throat and difficulty swallowing x last night. Patient denies any fever, chills, body aches, nausea, vomiting, diarrhea, or any other complaints. Time/Duration: Other (last night) Symptom Onset: Gradual Symptom Course: Unchanged Activities at Onset: Light Context: Home Past Medical History - Provider Review Nursing Documentation Reviewed: Yes - Infectious Disease Hx of Infectious Diseases: None - Tetanus Immunization Tetanus Immunization: Unknown - Cardiac Hx Cardiac Disorders: No - Pulmonary Hx Respiratory Disorders: No - Neurological Hx Neurological Disorder: Yes Hx Seizures: Yes Other/Comment: hx tramatic brain injury. - HEENT Hx HEENT Disorder: No - Renal Hx Renal Disorder: No - Endocrine/Metabolic Hx Endocrine Disorders: No - Hematological/Oncological Hx Blood Disorders: No - Integumentary Hx Dermatological Disorder: No - Musculoskeletal/Rheumatological Hx Musculoskeletal Disorders: No - Gastrointestinal Hx Gastrointestinal Disorders: No - Genitourinary/Gynecological Hx Genitourinary Disorders: No - Psychiatric Hx Psychophysiologic Disorder: No Hx Substance Use: No - Anesthesia Hx Anesthesia: Yes Hx Anesthesia Reactions: No Hx Malignant Hyperthermia: No Family/Social History - Physician Review Nursing Documentation Reviewed: Yes Family/Social History: Unknown Family HX Smoking Status: Heavy Smoker > 10 Cigarettes Daily Hx Alcohol Use: Yes Hx Substance Use: No Allergies/Home Meds Allergies/Adverse Reactions: Allergies levetiracetam [From [facility]] Allergy (Verified 11/01/17 05:11) ANAPHYLAXIS Review of Systems - Physician Review All systems were reviewed & negative as marked: Yes - Review of Systems Constitutional: absent: Fatigue, Fevers ENT: Sore Throat. absent: Rhinorrhea Respiratory: absent: SOB, Cough Cardiovascular: absent: Chest Pain, Palpitations, Syncope Gastrointestinal: absent: Abdominal Pain, Nausea, Vomiting Neurological: absent: Headache, Dizziness Physical Exam Vital Signs Reviewed: Yes Vital Signs Temp Pulse Resp BP Pulse Ox 03/05/18 09:29 98.4 F 98 H 18 132/84 100 Temperature: Afebrile Blood Pressure: Normal Pulse: Regular Respiratory Rate: Normal Appearance: Positive for: Well-Appearing, Non-Toxic, Uncomfortable Pain Distress: Moderate Mental Status: Positive for: Alert and Oriented X 3 - Systems Exam Head: Present: Atraumatic, Normocephalic Pupils: Present: PERRL Extroacular Muscles: Present: EOMI Conjunctiva: Present: Normal Ears: Present: NORMAL TM, Normal Canal. No: Erythema, TM Bulging Mouth: Present: Moist Mucous Membranes Pharnyx: Present: ERYTHEMA, TONSILS ENLARGED, Peritonsilar Swelling (large left peritonsilar abscess), Soft Palate/Uvular Edema. No: EXUDATE, Uvular Deviation Neck: Present: Normal Range of Motion, Lymphadenopathy (Left anterior lymphadenopathy) Respiratory/Chest: Present: Clear to Auscultation, Good Air Exchange Cardiovascular: Present: Regular Rate and Rhythm Abdomen: No: Tenderness, Distention Upper Extremity: Present: Normal Inspection Lower Extremity: Present: Normal Inspection Neurological: Present: GCS=15, CN II-XII Intact, Speech Normal, Motor Func Grossly Intact Skin: Present: Warm, Dry, Normal Color. No: Rashes Psychiatric: Present: Alert, Oriented x 3, Normal Insight, Normal Concentration Medical Decision Making ED Course and Treatment: 03/05/18 10:55 Impression: 27 year old female presents to the Emergency department complaining of sore throat and difficulty swallowing. Plan: -- Decadron -- Rocephin -- Sodium Chloride -- Blood Culture -- Reassess and disposition Progress Notes: Case discussed with Dr. Colbert, who accepts pt to service. 03/05/18 10:[address] Chacon, who is aware and agrees with plan and will see this afternoon.. - Lab Interpretations Lab Results: Total Bilirubin 0.6 mg/dL (0.2-1.3) 03/05/18 10:00 AST 25 U/L (14-36) 03/05/18 10:00 ALT 21 U/L (7-56) 03/05/18 10:00 Alkaline Phosphatase 75 U/L (38-126) 03/05/18 10:00 Total Protein 8.7 g/dL (5.8-8.3) H 03/05/18 10:00 Albumin 4.8 g/dL (3.0-4.8) 03/05/18 10:00 Globulin 3.9 gm/dL 03/05/18 10:00 Albumin/Globulin Ratio 1.2 (1.1-1.8) 03/05/18 10:00 - Medication Orders Current Medication Orders: Sodium Chloride (Sodium Chloride 0.9%) 1,000 mls @ 500 mls/hr IV ONCE ONE Stop: 03/05/18 11:44 Last Admin: 03/05/18 10:10 Dose: 500 mls/hr eMAR Start Stop Document 03/05/18 10:10 EQ (Rec: 03/05/18 10:10 EQ [id number]) Intravenous Solution Start Date 03/05/18 Start Time 10:10 Discontinued Medications Dexamethasone (Decadron Inj) 10 mg IVP STAT STA Stop: 03/05/18 09:46 Last Admin: 03/05/18 10:10 Dose: 10 mg IVP Administration Document 03/05/18 10:10 EQ (Rec: 03/05/18 10:10 EQ [id number]) Charges for Administration # of IVP Administrations 1 Ceftriaxone Sodium (Rocephin 2 Gm Ivpb) 2 gm in 100 mls @ 100 mls/hr IVPB STAT STA; Protocol Stop: 03/05/18 10:43 Last Admin: 03/05/18 10:09 Dose: 100 mls/hr eMAR Start Stop Document 03/05/18 10:09 EQ (Rec: 03/05/18 10:09 EQ [id number]) Intravenous Solution Start Date 03/05/18 Start Time 10:09 Ketorolac Tromethamine (Toradol) 15 mg IVP ONCE ONE Stop: 03/05/18 10:14 Last Admin: 03/05/18 10:26 Dose: 15 mg MAR Pain Assessment Document 03/05/18 10:26 EQ (Rec: 03/05/18 10:26 EQ [id number]) Pain Reassessment Is this a pain reassessment? No Sleep Is patient sleeping during reassessment? No Presence of Pain Presence of Pain Yes IVP Administration Document 03/05/18 10:26 EQ (Rec: 03/05/18 10:26 EQ [id number]) Charges for Administration # of IVP Administrations 1 - Scribe Statement The provider has reviewed the documentation as recorded by the Scriblaith Jean All medical record entries made by the Scribe were at my direction and personally dictated by me. I have reviewed the chart and agree that the record accurately reflects my personal performance of the history, physical exam, medical decision making, and the department course for this patient. I have also personally directed, reviewed, and agree with the discharge instructions and disposition. Disposition/Present on Arrival - Present on Arrival Any Indicators Present on Arrival: No History of DVT/PE: No History of Uncontrolled Diabetes: No Urinary Catheter: No History of Decub. Ulcer: No History Surgical Site Infection Following: None - Disposition Have Diagnosis and Disposition been Completed?: Yes Diagnosis: Peritonsillar abscess, Leukocytosis Disposition: HOSPITALIZED Disposition Time: 11:25 Patient Plan: Admission Patient Problems: Current Active Problems Problem Status Onset Leukocytosis Acute Peritonsillar abscess Acute Condition: SERIOUS
[2018-03-05] MEDS ORDERED: Acetaminophen 160 mg/5 ml UD PO PRN (11:38)
[2018-03-05] MEDS ORDERED: Vancomycin 1gm in NS 250ml 1 GM/250 ML BAG IVPB SCH ×2 (11:45→13:00)
--- NOTE | 2018-03-05 11:45 | CP.PCM.HP ---
<Pedrito Traviscosme - Last Filed: 03/05/18 12:50> History of Present Illness - History of Present Illness History of Present Illness: Crystal Travis DO, PGY-2: Hospistalist HPI 27 year old female with a past medical history of seizure disorder and tobacco use who presents with sore throat and inability to swallow her own saliva. Onset of symptoms began last night. Patient was seen in the ED for a seizure on 03/04/18. She denies any dyspnea, neck pain, muscle spasm, fever, chills. She was able to swallow her Trileptal this morning before coming top the ED. She is spitting in a 17 fluid oz bottle that is care home full of saliva. She is accompanied by her mother who corroborates some of the history. Otherwise, 12 point review of system is negative except for left ear fullness, increased in salivation, and tongue pain. She denies drinking alcohol, illicit drug use, or missing any of her seizure medication. Review of last discharged showed the patient was suppose to be taking 900mg Trileptal in AM and 600 mg of Trileptal in PM as well as 50 mg of Lamictal. Currently, the patient's seizures as not controlled as she had a seizure yesterday. She is taking Trileptal 600 mg in the AM and 300 in the PM. She is not on Lamictal at this time. We will consult neurology for refractory seizures and ENT for the peritonsillar cellulitis or abscess. She also denies drinking alcohol prior to her seizure on 03/05/18. 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19, drinks socially, denies illicit drug use Present on Admission - Present on Admission Any Indicators Present on Admission: No Review of Systems - Review of Systems All systems: reviewed and no additional remarkable complaints except (as per HPI) Past Patient History - Infectious Disease Hx of Infectious Diseases: None - Tetanus Immunizations Tetanus Immunization: Unknown - Past Medical History & Family History Past Medical History?: Yes - Past Social History Smoking Status: Heavy Smoker > 10 Cigarettes Daily - CARDIAC Hx Cardiac Disorders: No - PULMONARY Hx Respiratory Disorders: No - NEUROLOGICAL Hx Neurological Disorder: Yes Hx Seizures: Yes Other/Comment: hx tramatic brain injury. - HEENT Hx HEENT Problems: No - RENAL Hx Chronic Kidney Disease: No - ENDOCRINE/METABOLIC Hx Endocrine Disorders: No - HEMATOLOGICAL/ONCOLOGICAL Hx Blood Disorders: No - INTEGUMENTARY Hx Dermatological Problems: No - MUSCULOSKELETAL/RHEUMATOLOGICAL Hx Musculoskeletal Disorders: No - GASTROINTESTINAL Hx Gastrointestinal Disorders: No - GENITOURINARY/GYNECOLOGICAL Hx Genitourinary Disorders: No - PSYCHIATRIC Hx Psychophysiologic Disorder: No Hx Substance Use: No - SURGICAL HISTORY Hx Surgeries: No - ANESTHESIA Hx Anesthesia: Yes Hx Anesthesia Reactions: No Hx Malignant Hyperthermia: No Meds Allergies/Adverse Reactions: Allergies Allergy/AdvReac Type Severity Reaction Status Date / Time levetiracetam [From [facility]] Allergy ANAPHYLAXIS Verified 03/05/18 16:44 Physical Exam - Constitutional Appears: Non-toxic - Head Exam Head Exam: ATRAUMATIC, NORMOCEPHALIC - Eye Exam Eye Exam: EOMI, Normal appearance - ENT Exam ENT Exam: Mucous Membranes Moist Additional comments: left peritonsillar area swollen and erythematous, Tympanic Membranes obscured bilaterally by wax - Neck Exam Neck exam: Positive for: Normal Inspection. Negative for: Lymphadenopathy, Tenderness - Respiratory Exam Respiratory Exam: Clear to Auscultation Bilateral, NORMAL BREATHING PATTERN. absent: Accessory Muscle Use, Stridor - Cardiovascular Exam Cardiovascular Exam: RRR, +S1, +S2 - GI/Abdominal Exam GI & Abdominal Exam: absent: Guarding, Rebound - Extremities Exam Extremities exam: Positive for: normal inspection. Negative for: calf tenderness - Neurological Exam Neurological exam: Alert, CN II-XII Intact, Oriented x3 - Psychiatric Exam Psychiatric exam: Normal Affect, Normal Mood - Skin Skin Exam: Dry, Intact, Normal Color, Warm Results - Vital Signs Recent Vital Signs: Last Vital Signs Temp 98.4 F 03/05/18 09:29 Pulse 98 H 03/05/18 09:29 Resp 18 03/05/18 09:29 BP 132/84 03/05/18 09:29 Pulse Ox 100 03/05/18 09:29 - Labs Result Diagrams: 03/05/18 10:00 03/05/18 10:00 Labs: Laboratory Results - last 24 hr 03/05/18 03/05/18 10:00 10:00 WBC 19.5 H RBC 4.41 Hgb 13.6 Hct 40.7 MCV 92.3 MCH 30.8 MCHC 33.4 RDW 13.3 Plt Count 246 MPV 8.6 Gran % 83.9 H Lymph % (Auto) 7.3 L [place] % (Auto) 8.6 H Eos % (Auto) 0.1 L Baso % (Auto) 0.1 Gran # 16.40 H Lymph # (Auto) 1.4 [place] # (Auto) 1.7 H Eos # (Auto) 0.0 Baso # (Auto) 0.02 Sodium 140 Potassium 3.9 Chloride 101 Carbon Dioxide 28 Anion Gap 15 BUN 6 L Creatinine 0.7 Est GFR ( Amer) > 60 Est GFR (Non-Af Amer) > 60 Random Glucose 98 Calcium 9.5 Magnesium 2.1 Total Bilirubin 0.6 AST 25 ALT 21 Alkaline Phosphatase 75 Total Protein 8.7 H Albumin 4.8 Globulin 3.9 Albumin/Globulin Ratio 1.2 Assessment & Plan - Assessment and Plan (Free Text) Assessment: 27 year old female with seizure disorder and tobacco use who presents s/p seizure followed by throat pain, inability to swallow her own, and was found to have was appears to be a peritonsillar cellulitis versus abscess in the setting of chronic otitis media. 1) Peritonsillar Abscess - Rocephin 2 gram given in ED - Ampicillin/Sulfabactam 3 gram q6h FAINA - ENT consulted for expert opinion and further management - NPO except for medications - Pepcid 20 mg IVP daily - Solumedrol 40 mg q8h FAINA - Analgesia with Toradol 15 mg q6h PRN - NS 120 mls/hr 2) Seizure disorder - Trileptal 900 mg 0800 and 600 mg 2000 - Lamictal 50 mg (defer to neurology) - Ativan 2 mg q1h PRN for seizure activity - Seizure precautions QS - Neurology consulted, Dr. Redd 3) GI/DVT prophylaxis - Pepcid/SCD Case was reviewed and discussed attending physician, Dr. Colbert - Date & Time Date: 03/05/18 Time: 12:59 <Mavis Colbert - Last Filed: 03/07/18 09:09> Results - Vital Signs Recent Vital Signs: Last Vital Signs Temp 98 F 03/06/18 14:00 Pulse 70 03/06/18 14:00 Resp 18 03/06/18 14:00 BP 107/67 03/06/18 14:00 Pulse Ox 100 03/06/18 14:00 - Labs Result Diagrams: 03/06/18 07:00 03/06/18 07:00 Attending/Attestation - Attestation I have personally seen and examined this patient.: Yes I have fully participated in the care of the patient.: Yes I have reviewed all pertinent clinical information: Yes Notes (Text): 03/07/18 09:09 Medical record note made by the resident after discussion with my direction and input after the patient was personally seen and examined by me. I have reviewed the chart and agree that the record accurately reflects by personal performance of the history, physical exam, data review, and medical decision-making, in the course for the patient. I have also personally directed the plan of care.
[2018-03-05] MEDS: Sodium Chloride 0.9% 1,000 ML IV SCH (13:30)
[2018-03-05] MEDS: MethylPREDNISolone 40 mg Vial IVP SCH ×2 (16:06→23:12)
[2018-03-05] MEDS ORDERED: Valproic Acid 250 mg/5 ml UD Cup PO SCH (18:00)
--- NOTE | 2018-03-05 18:19 | CON ---
DATE: 03/05/2018 HISTORY OF PRESENT ILLNESS: This is a 27-year-old black female with progressive sore throat, who apparently had a seizure, last yesterday on 03/04/2018. She came to the ER where she was evaluated and noted to have a clinical evidence of a left peritonsillar abscess, for which consultation was obtained. The patient denies a history of recurrent tonsillitis, but has a history of grand mal seizures in the past. ALLERGIES: THE PATIENT DENIES ANY ALLERGIES. LABORATORY DATA: On admitting lab work, had a 20,000 white count. PHYSICAL EXAMINATION: GENERAL: The patient was examined at bedside. HEENT: Oral examination has noted the evidence of left peritonsillar abscess with a white exudate noted. The area was sprayed using Hurricaine spray and using #18-gauge needle, 5 mL of pus was aspirated and sent for cultures. Ears and nose exam was unremarkable. The patient did have some shotty adenopathy present on physical exam. IMPRESSION: The patient is suffering from a left peritonsillar abscess, also with a history of grand mal seizures. PLAN: The plan is to continue taking Solu-Medrol, and the patient was placed on Unasyn and will be admitted for observation with progressive advancement of the diet planned. The patient tolerated the procedure well and was admitted to the hospital for IV antibiotic and steroid therapy. Nir Willson DO
[2018-03-05] MEDS ORDERED: Influenza Vaccine 60 mcg/0.5 mL SYR (4YR UP) IM ONE (19:14)
[2018-03-05] MEDS ORDERED: Pneumococcal 23-Valent Vaccine IM ONE (19:14)
[2018-03-06] MEDS: Sodium Chloride 0.9% 1,000 ML IV SCH (02:41)
[2018-03-06] MEDS: MethylPREDNISolone 40 mg Vial IVP SCH (05:31)
[2018-03-06 07:33] LABS: BASO # 0.01 K/mm3 (0.0-2.0); BASO % 0.1 % (0.0-3.0); GRAN # 15.95 (1.4-6.5); GRAN % 89.6 % (50.0-68.0); LYMPH # 1.2 (1.2-3.4); LYMPH % 6.5 % (22.0-35.0); MEAN CORPUSCULAR HEMOGLOBIN 30.2 pg (25.0-35.0); MEAN CORPUSCULAR HGB CONC 32.4 g/dl (31.0-37.0); MEAN PLATELET VOLUME 8.9 fl (7.0-11.0); MONO # 0.7 (0.1-0.6); MONO % 3.8 % (1.0-6.0); RBC 3.98 10^6/uL (3.5-6.1); RED CELL DISTRIBUTION WIDTH 13.5 % (11.5-14.5); WHITE BLOOD COUNT 17.8 10^3/uL (4.5-11.0)
[2018-03-06 07:39] LABS: ALB/GLOB RATIO 1.2 (1.1-1.8); ALT/SGPT 17 U/L (7-56); AST/SGOT 28 U/L (14-36); BLOOD UREA NITROGEN 9 mg/dL (7-21); GFR NON-AFRICAN AMERICAN > 60
[2018-03-06 08:19] VITALS: O2SAT 100
[2018-03-06 14:06] VITALS: BP 107/67; PULSE 70; TEMP 98
--- NOTE | 2018-03-06 14:54 | CP.PCM.DIS ---
<Crystal Travis - Last Filed: 03/06/18 14:55> Provider - Provider Date of Admission: 03/05/18 11:25 Attending physician: Mavis Colbert MD Consults: 03/05/18 09:47 Consult [Physician Consult] Stat Comment: call Consulting Provider: Omer Barrow Consulting Physician: Omer Barrow Reason for Consult: peritonsilar abscess 03/05/18 12:29 Physician Consult Routine Comment: Consulting Provider: Leo Redd Consulting Physician: Leo Redd Reason for Consult: patient is NPO and there is no liquid trileptal Additional Comments: and she is allergic to Keppra 03/05/18 19:16 Nursing Referral for Palliative Care Routine Comment: NOT APPLICABLE Physician Instructions: Reason For Exam: EVALUATION Time Spent in preparation of Discharge (in minutes): 45 Hospital Course - Lab Results Lab Results: Micro Results 03/05/18 10:30 Blood Blood Culture - Preliminary NO GROWTH AFTER 24 HOURS 03/05/18 10:00 Blood Blood Culture - Preliminary NO GROWTH AFTER 24 HOURS Most Recent Lab Values WBC 17.8 10^3/uL (4.5-11.0) H 03/06/18 07:00 RBC 3.98 10^6/uL (3.5-6.1) 03/06/18 07:00 Hgb 12.0 g/dL (12.0-16.0) 03/06/18 07:00 Hct 37.0 % (36.0-48.0) 03/06/18 07:00 MCV 93.0 fl (80.0-105.0) 03/06/18 07:00 MCH 30.2 pg (25.0-35.0) 03/06/18 07:00 MCHC 32.4 g/dl (31.0-37.0) 03/06/18 07:00 RDW 13.5 % (11.5-14.5) 03/06/18 07:00 Plt Count 237 10^3/uL (120.0-450.0) 03/06/18 07:00 MPV 8.9 fl (7.0-11.0) 03/06/18 07:00 Gran % 89.6 % (50.0-68.0) H 03/06/18 07:00 Lymph % (Auto) 6.5 % (22.0-35.0) L 03/06/18 07:00 [place] % (Auto) 3.8 % (1.0-6.0) 03/06/18 07:00 Eos % (Auto) 0.0 % (1.5-5.0) L 03/06/18 07:00 Baso % (Auto) 0.1 % (0.0-3.0) 03/06/18 07:00 Gran # 15.95 (1.4-6.5) H 03/06/18 07:00 Lymph # (Auto) 1.2 (1.2-3.4) 03/06/18 07:00 [place] # (Auto) 0.7 (0.1-0.6) H 03/06/18 07:00 Eos # (Auto) 0.0 (0.0-0.7) 03/06/18 07:00 Baso # (Auto) 0.01 K/mm3 (0.0-2.0) 03/06/18 07:00 Sodium 143 mmol/L (132-148) 03/06/18 07:00 Potassium 4.5 mmol/L (3.6-5.0) 03/06/18 07:00 Chloride 108 mmol/L (98-107) H 03/06/18 07:00 Carbon Dioxide 28 mmol/L (21-33) 03/06/18 07:00 Anion Gap 11 (10-20) 03/06/18 07:00 BUN 9 mg/dL (7-21) 03/06/18 07:00 Creatinine 0.6 mg/dl (0.7-1.2) L 03/06/18 07:00 Est GFR ( Amer) > 60 03/06/18 07:00 Est GFR (Non-Af Amer) > 60 03/06/18 07:00 Random Glucose 124 mg/dL (70-110) H 03/06/18 07:00 Calcium 9.0 mg/dL (8.4-10.5) 03/06/18 07:00 Magnesium 2.5 mg/dL (1.7-2.2) H 03/06/18 07:00 Total Bilirubin 0.3 mg/dL (0.2-1.3) 03/06/18 07:00 AST 28 U/L (14-36) 03/06/18 07:00 ALT 17 U/L (7-56) 03/06/18 07:00 Alkaline Phosphatase 80 U/L (38-126) 03/06/18 07:00 Total Protein 7.5 g/dL (5.8-8.3) 03/06/18 07:00 Albumin 4.0 g/dL (3.0-4.8) 03/06/18 07:00 Globulin 3.4 gm/dL 03/06/18 07:00 Albumin/Globulin Ratio 1.2 (1.1-1.8) 03/06/18 07:00 - Hospital Course Hospital Course: 27 year old female with a past medical history of seizure disorder and tobacco use who presented with sore throat, inability to swallow her own saliva, and was found to have a left peritonsillar abscess. Also i mportant to note, the day before admission the patient had a breakthrough seizure. Patient was seen in the ED for a seizure on 03/04/18. She denies any dyspnea, neck pain, muscle spasm, fever, chills. In the ED the patient was given 2 grams of IVPB Rocephin, 10 mg of IV dexamethasone, and 15 mg of Toradol. Clinically, the patient had a left peritonsillar abscess and thus was kept NPO, started on Unasyn, fluids, and PRN Toradol. ENT was consulted and performed a bedside incision and drainage for the left peritonsillar abscess. The pus was sent for culture. She was kept NPO overnight and he diet was advanced from clear liquid to soft the following day. During the course of her hospital stay she tolerated a liquid diet and had no fevers or complications. Neurology was consulted for refractory seizures and recommended the patient be on 900 mg of Trileptal at 05:30 AM daily and 600 mg at 17:30 PM daily as well as Zonisamide 100 mg once a day to be taken at the same time. The patient's pharmacy ([facility] in [place]) was called to confirm that they carry the Zonisamide 100 mg. The patient was counselled on methods to remember to take her Antiepileptic Drugs everyday and to avoid alcohol or drug use. She was also discharged with Clindamycin 300 mg q6h for a total of a seven day course. She will be following up with Dr. Redd in the next 10 days. She will remain on a soft diet for the next 5-7 days. - Date & Time of H&P Date of H&P: 03/06/18 Time of H&P: 15:09 Discharge Exam - Head Exam Head Exam: ATRAUMATIC, NORMOCEPHALIC - Eye Exam Eye Exam: EOMI, Normal appearance - ENT Exam ENT Exam: Mucous Membranes Moist, Normal Oropharynx - Neck Exam Neck exam: Normal Inspection - Respiratory Exam Respiratory Exam: Clear to PA & Lateral, NORMAL BREATHING PATTERN. absent: Accessory Muscle Use - Cardiovascular Exam Cardiovascular Exam: RRR, +S1, +S2 - Extremities Exam Extremities exam: normal inspection - Back Exam Back exam: NORMAL INSPECTION. absent: CVA tenderness (L), CVA tenderness (R) - Neurological Exam Neurological exam: Alert, CN II-XII Intact, Oriented x3 - Psychiatric Exam Psychiatric exam: Normal Affect, Normal Mood - Skin Skin Exam: Dry, Intact, Normal Color, Warm Discharge Plan - Discharge Medications Prescriptions: RX: Clindamycin [Cleocin] 300 mg PO Q6 #28 cap Lactobacillus Acidophilus [Acidophilus Lactobacilli] 1 each PO DAILY #7 capsule RX: OXcarbazepine [Trileptal] 900 mg PO 0530 30 Days tab RX: OXcarbazepine [Trileptal] 600 mg PO 1730 30 Days tab RX: Zonisamide [Zonegran] 100 mg PO DAILY #30 cap - Follow Up Plan Condition: SERIOUS Disposition: HOME/ ROUTINE Instructions: Leukocytosis (DC), Leukocytosis (GEN), Abscess (GEN) Additional Instructions: 1) You are to follow up with Dr. Redd (Neurologist) within the next 10 days. 2) You are to take Clindamycin every 6 hours for a total of 7 days for the peritonsillar abscess. 3) You are to take Trileptal 900 mg at 05:30 AM daily and Trileptal 600 mg at 5:30 PM daily, as discussed. 4) We recommend that you take the probiotic while taking your antibiotic to prevent diarrhea associated with antibiotics. Please take this after breakfast once a day. 5) You are to remain on a soft diet until your throat feels better. 6) Remember to avoid alcohol and any illicit drugs as they can promote seizures. 7) Also, follow up with your PMD within the next 5-7 days. Referrals: Leo Redd MD [Staff Provider] - <Mavis Colbert - Last Filed: 03/07/18 09:08> Provider - Provider Date of Admission: 03/05/18 11:25 Attending physician: Mavis Colbert MD Consults: 03/05/18 09:47 Consult [Physician Consult] Stat Comment: call Consulting Provider: Omer Barrow Consulting Physician: Omer Barrow Reason for Consult: peritonsilar abscess 03/05/18 12:29 Physician Consult Routine Comment: Consulting Provider: Leo Redd Consulting Physician: Leo Redd Reason for Consult: patient is NPO and there is no liquid trileptal Additional Comments: and she is allergic to Keppra 03/05/18 19:16 Nursing Referral for Palliative Care Routine Comment: NOT APPLICABLE Physician Instructions: Reason For Exam: EVALUATION Hospital Course - Lab Results Lab Results: Micro Results 03/05/18 16:40 Other: Please Indicate Mycobacterial Culture - Preliminary 03/05/18 10:30 Blood Blood Culture - Preliminary NO GROWTH AFTER 24 HOURS 03/05/18 10:00 Blood Blood Culture - Preliminary NO GROWTH AFTER 24 HOURS Most Recent Lab Values WBC 17.8 10^3/uL (4.5-11.0) H 03/06/18 07:00 RBC 3.98 10^6/uL (3.5-6.1) 03/06/18 07:00 Hgb 12.0 g/dL (12.0-16.0) 03/06/18 07:00 Hct 37.0 % (36.0-48.0) 03/06/18 07:00 MCV 93.0 fl (80.0-105.0) 03/06/18 07:00 MCH 30.2 pg (25.0-35.0) 03/06/18 07:00 MCHC 32.4 g/dl (31.0-37.0) 03/06/18 07:00 RDW 13.5 % (11.5-14.5) 03/06/18 07:00 Plt Count 237 10^3/uL (120.0-450.0) 03/06/18 07:00 MPV 8.9 fl (7.0-11.0) 03/06/18 07:00 Gran % 89.6 % (50.0-68.0) H 03/06/18 07:00 Lymph % (Auto) 6.5 % (22.0-35.0) L 03/06/18 07:00 [place] % (Auto) 3.8 % (1.0-6.0) 03/06/18 07:00 Eos % (Auto) 0.0 % (1.5-5.0) L 03/06/18 07:00 Baso % (Auto) 0.1 % (0.0-3.0) 03/06/18 07:00 Gran # 15.95 (1.4-6.5) H 03/06/18 07:00 Lymph # (Auto) 1.2 (1.2-3.4) 03/06/18 07:00 [place] # (Auto) 0.7 (0.1-0.6) H 03/06/18 07:00 Eos # (Auto) 0.0 (0.0-0.7) 03/06/18 07:00 Baso # (Auto) 0.01 K/mm3 (0.0-2.0) 03/06/18 07:00 Sodium 143 mmol/L (132-148) 03/06/18 07:00 Potassium 4.5 mmol/L (3.6-5.0) 03/06/18 07:00 Chloride 108 mmol/L (98-107) H 03/06/18 07:00 Carbon Dioxide 28 mmol/L (21-33) 03/06/18 07:00 Anion Gap 11 (10-20) 03/06/18 07:00 BUN 9 mg/dL (7-21) 03/06/18 07:00 Creatinine 0.6 mg/dl (0.7-1.2) L 03/06/18 07:00 Est GFR ( Amer) > 60 03/06/18 07:00 Est GFR (Non-Af Amer) > 60 03/06/18 07:00 Random Glucose 124 mg/dL (70-110) H 03/06/18 07:00 Calcium 9.0 mg/dL (8.4-10.5) 03/06/18 07:00 Magnesium 2.5 mg/dL (1.7-2.2) H 03/06/18 07:00 Total Bilirubin 0.3 mg/dL (0.2-1.3) 03/06/18 07:00 AST 28 U/L (14-36) 03/06/18 07:00 ALT 17 U/L (7-56) 03/06/18 07:00 Alkaline Phosphatase 80 U/L (38-126) 03/06/18 07:00 Total Protein 7.5 g/dL (5.8-8.3) 03/06/18 07:00 Albumin 4.0 g/dL (3.0-4.8) 03/06/18 07:00 Globulin 3.4 gm/dL 03/06/18 07:00 Albumin/Globulin Ratio 1.2 (1.1-1.8) 03/06/18 07:00 Attending/Attestation - Attestation I have personally seen and examined this patient.: Yes I have fully participated in the care of the patient.: Yes I have reviewed all pertinent clinical information, including history, physical exam and plan: Yes Notes (Text): 03/07/18 09:04 Medical record note made by the resident after discussion with my direction and input after the patient was personally seen and examined by me. I have reviewed the chart and agree that the record accurately reflects by personal performance of the history, physical exam, data review, and medical decision-making, in the course for the patient. I have also personally directed the plan of care. 27 year old female with PMH of seizure disorder and tobacco use who presented with sore throat, inability to swallow her own saliva, and was found to have a left peritonsillar abscess. Patient was treated with IV antibiotics and steroid. ENT was consulted and performed a bedside incision and drainage for the left peritonsillar abscess. The pus was sent for culture. Patient is feeling better today. She is on room air and is tolerating soft diet. She was also evaluated by Neurology for seizure disorder and recommended the patient be on 900 mg of Trileptal at 05:30 AM daily and 600 mg at 17:30 PM daily as well as Zonisamide 100 mg once a day to be taken at the same time. The patient's pharmacy ([facility] in [place]) was called to confirm that they carry the Zonisamide 100 mg. The patient was counselled on methods to remember to take her Antiepileptic Drugs everyday and to avoid alcohol or drug use. She will be discharged with Clindamycin 300 mg q6h for a total of a seven day course. Patient will follow up with ENT. She will be following up with Dr. Redd in the next 10 days. . Management plan was discussed in detail with patient. Education was provided.
--- NOTE | 2018-03-06 22:01 | CP.PCM.CON ---
History of Present Illness - History of Present Illness History of Present Illness: Neurology Consultation (Dr. Redd's Service) CC: Breakthrough Seizure HPI: Mrs. 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 Patient had previously had breakthrough seizures on her current medication, Trileptal, and was admitted for this in 10/2017. Her dose of Trileptal was increased and she was started on Lamictal as well. Unfortunately, patient was unable to get her Lamictal as an outpatient and a problem with her pharmacy prevented her from getting the accurate dosage increase in her Trileptal. Patient has, however, been seizure free from that point until this current episode. She denies any complaints at this time and further denies any changes in her vision, headaches, dysarthria, neck stiffness, chest pain, SOB, abdominal pain, N/V/D/C, changes in urine output or any numbness/tingling/weakness of any extremity. PMH: As stated above PSH: Denies Family History: Non-Contributory Social History: Social alcohol consumption; Mild tobacco use; Denies any illicit drug use Allergies: Kera Home Medications: As per MAR Review of Systems - Review of Systems Review of Systems: As stated in HPI, otherwise negative Past Patient History - Infectious Disease Hx of Infectious Diseases: None - Tetanus Immunizations Tetanus Immunization: Unknown - Past Medical History & Family History Past Medical History?: Yes - Past Social History Smoking Status: Current Some Days Smoker - CARDIAC Hx Cardiac Disorders: No - PULMONARY Hx Respiratory Disorders: Yes (PERITONSILLAR SBSCESS L. CHRONIC TONSILLITIS) Other/Comment: SMOKES 5 CIG A DAY. SMOKES SINCE 19 YRS OLD. - NEUROLOGICAL Hx Neurological Disorder: Yes Hx Seizures: Yes Other/Comment: hx tramatic brain injury. - HEENT Hx HEENT Problems: Yes (PERITONSILLAR ABSCESS LEFT,CHRONIC TONSILLITIS) Other/Comment: CHRONIC OTITIS MEDIA - RENAL Hx Chronic Kidney Disease: No - ENDOCRINE/METABOLIC Hx Endocrine Disorders: No - HEMATOLOGICAL/ONCOLOGICAL Hx Blood Disorders: No - INTEGUMENTARY Hx Dermatological Problems: No - MUSCULOSKELETAL/RHEUMATOLOGICAL Hx Musculoskeletal Disorders: No Hx Falls: No - GASTROINTESTINAL Hx Gastrointestinal Disorders: No - GENITOURINARY/GYNECOLOGICAL Hx Genitourinary Disorders: No - PSYCHIATRIC Hx Psychophysiologic Disorder: No Hx Substance Use: No - SURGICAL HISTORY Hx Surgeries: No - ANESTHESIA Hx Anesthesia: Yes Hx Anesthesia Reactions: No Hx Malignant Hyperthermia: No Meds Home Medications: Home Medication List Medication Instructions Recorded Confirmed Type Clindamycin [Cleocin] 300 mg PO Q6 #28 cap 03/06/18 Rx Lactobacillus Acidophilus 1 each PO DAILY #7 capsule 03/06/18 Rx [Acidophilus Lactobacilli] OXcarbazepine [Trileptal] 600 mg PO 1730 30 Days tab 03/06/18 Rx OXcarbazepine [Trileptal] 900 mg PO 0530 30 Days tab 03/06/18 Rx Zonisamide [Zonegran] 100 mg PO DAILY #30 cap 03/06/18 Rx Allergies/Adverse Reactions: Allergies Allergy/AdvReac Type Severity Reaction Status Date / Time levetiracetam [From [facility]] Allergy ANAPHYLAXIS Verified 03/05/18 16:44 Physical Exam - Constitutional Appears: Non-toxic, No Acute Distress - Head Exam Head Exam: ATRAUMATIC, NORMOCEPHALIC - Eye Exam Eye Exam: EOMI, Normal appearance, PERRL. absent: Conjunctival injection, Nystagmus, Periorbital swelling, Periorbital tenderness, Scleral icterus Pupil Exam: NORMAL ACCOMODATION. absent: Fixed, Irregular, Miosis, Mydriatic, PERRL, Unequal - ENT Exam ENT Exam: Mucous Membranes Moist - Neck Exam Neck exam: Positive for: Full Rom, Normal Inspection. Negative for: Lymphadenopathy, Meningismus, Tenderness, Thyromegaly - Back Exam Back exam: NORMAL INSPECTION - Neurological Exam Neurological exam: Alert, CN II-XII Intact, Normal Gait, Oriented x3, Reflexes Normal - Expanded Neurological Exam Expanded Patient oriented to: person, place, time Cranial nerves: EOM's Intact: Normal, Facial Palsey w/Forehead Movement: Normal, Facial Palsey w/o Forehead Movement: Normal, Facial Sensation: Normal, Tongue Deviation: Normal Ataxia: No Cerebellar Function: Finger to Nose: Normal, Heel to Joel: Normal, Romberg: Normal Upper motor neuron: Sanjay Neglect: Normal, Pronator Drift: Normal Sensory exam: Lower Extremity 2 Point Discrimination: Normal, Lower Extremity Light Touch: Normal, Upper Extremity 2 Point Discrimination: Normal, Upper Extremity Light Touch: Normal Neuro motor strength exam: Left Upper Extremity: 5, Right Upper Extremity: 5, Left Lower Extremity: 5, Right Lower Extremity: 5 Coma Scale Eye Opening: SPONTANEOUS Coma Scale Motor Response: OBEYS COMMANDS - Psychiatric Exam Psychiatric exam: Normal Affect, Normal Mood - Skin Skin Exam: Dry, Intact, Normal Color, Warm Results - Vital Signs Recent Vital Signs: Last Vital Signs Temp 98 F 03/06/18 14:00 Pulse 70 03/06/18 14:00 Resp 18 03/06/18 14:00 BP 107/67 03/06/18 14:00 Pulse Ox 100 03/06/18 14:00 - Labs Result Diagrams: 03/06/18 07:00 03/06/18 07:00 Labs: Laboratory Results - last 24 hr 03/06/18 03/06/18 07:00 07:00 WBC 17.8 H RBC 3.98 Hgb 12.0 Hct 37.0 MCV 93.0 MCH 30.2 MCHC 32.4 RDW 13.5 Plt Count 237 MPV 8.9 Gran % 89.6 H Lymph % (Auto) 6.5 L [place] % (Auto) 3.8 Eos % (Auto) 0.0 L Baso % (Auto) 0.1 Gran # 15.95 H Lymph # (Auto) 1.2 [place] # (Auto) 0.7 H Eos # (Auto) 0.0 Baso # (Auto) 0.01 Sodium 143 Potassium 4.5 Chloride 108 H Carbon Dioxide 28 Anion Gap 11 BUN 9 Creatinine 0.6 L Est GFR ( Amer) > 60 Est GFR (Non-Af Amer) > 60 Random Glucose 124 H Calcium 9.0 Magnesium 2.5 H Total Bilirubin 0.3 AST 28 ALT 17 Alkaline Phosphatase 80 Total Protein 7.5 Albumin 4.0 Globulin 3.4 Albumin/Globulin Ratio 1.2 Assessment & Plan - Assessment and Plan (Free Text) Assessment: 27 year old female with a past medical history significant for 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 Plan: -Increase Trileptal dose to 900mg in the AM and 600mg in the PM -Start Zonegran 100mg -Follow up as an outpatient with either Dr. Redd, Dr. Obregon or a neurologist of her choosing Patient seen and case discussed with attending, Dr. Redd. Raheem Sullivan, PGY2 - Date & Time Date: 03/06/18 Time: 22:03
== END 2018-03-06 18:51 | disposition home or self-care (01) ==
LOC: ED 09:29 → ERH 11:25 → 5RNO 17:21
PROVIDERS: ADMIT Internal Medicine; ATTEND Internal Medicine
DX: J36 Peritonsillar abscess (principal); G40.419 Other generalized epilepsy and epileptic syndromes, intractable, without status epilepticus; D72.829 Elevated white blood cell count, unspecified; F17.210 Nicotine dependence, cigarettes, uncomplicated; Z87.820 Personal history of traumatic brain injury
CPT/HCPCS: 36415; 80053; 83735; 85025; 87015; 87040; 87116; 87206; 96365; 96366; 96375; 96376; 99284; G0378; J0295; J0696; J1100; J1885; J2920; J7030; J7040